=== PATIENT | male | born 1945 | race Caucasian/White ===

== ENCOUNTER 2018-04-28 14:12 | Emergency (ER) | payer OTHER, BC ==
--- OUTSIDE RECORDS SUMMARY | 2018-04-28 14:15 | XMS REPORT | Continuity of Care Document ---
:1945 Author Organization Interface Problems Problem Status Onset Date Classification Date Comments Source Reported Medications Medication Details Route Status Patient Ordering Order Source Instructions Provider Date Allergies, Adverse Reactions, Alerts Substance Category Reaction Severity Reaction Status Date Comments Source type Reported Immunizations Immunization Date Given Site Status Last Updated Comments Source Results Order Results Value Reference Date Interpretation Comments Source Name Range Vital Signs Vital Sign Value Date Comments Source Encounters Location Location Encounter Encounter Reason Attending ADM DC Status Source Details Type Number For Provider Date Date Visit Outpatient [id number] JULIAN 11/08 [facility] [place] Outpatient [id number] JULIAN 11/09 [facility] [place] Outpatient [id number] JULIAN 12/06 [facility] [place] Procedures Procedure Code Date Perfomer Comments Source
--- NOTE | 2018-04-28 16:17 | ER ---
Nurse's Notes [facility] Name: Dalton King Age: 72 yrs Sex: Male : 1945 Arrival Date: 04/28/2018 Time: 14:14 Bed Treatment Private MD: Diagnosis: Bitten by dog-Right hand Presentation: 04/28 14:32 Presenting complaint: Patient states: i had a dog bite ( a [place]), on my R hand; hj happened about an hour ago; denies info about dog;. Transition of care: patient was not received from another setting of care. Onset of symptoms was April 28, 2018. Risk Assessment: Do you want to hurt yourself or someone else? Patient reports no desire to harm self or others. Initial Sepsis Screen: Does the patient meet any 2 criteria? No. Patient's initial sepsis screen is negative. Does the patient have a suspected source of infection? No. Patient's initial sepsis screen is negative. Care prior to arrival: None. 14:32 Method Of Arrival: Ambulatory 14:32 Acuity: ADRI 4 14:41 Note spoke with Demi, [id number]; reported the incident to [facility] Police;. Triage Assessment: 14:34 Bite description: bite sustained to right hand is by a dog, animal information: hj vaccination(s) is unknown. General: Appears in no apparent distress. uncomfortable, Behavior is calm, cooperative, appropriate for age. Pain: Complains of pain in right hand. Historical: - Allergies: 14:34 No Known Allergies; hj - Home Meds: 14:34 None [Active]; - PMHx: 14:34 Hypertension; - PSHx: 14:34 None; hj - Immunization history:: Adult Immunizations not up to date. - Social history:: Smoking status: Patient/guardian denies using tobacco, Patient/guardian denies using alcohol. - Ebola Screening: : Patient negative for fever greater than or equal to 101.5 degrees Fahrenheit, and additional compatible Ebola Virus Disease symptoms Patient denies exposure to infectious person Patient denies travel to an Ebola-affected area in the 21 days before illness onset. Screenin:34 Abuse screen: Denies threats or abuse. Denies injuries from another. Nutritional hj screening: No deficits noted. Tuberculosis screening: No symptoms or risk factors identified. Fall Risk None identified. Assessment: 14:35 Derm: Skin has skin tears on R hand Skin is pink, warm \T\ dry. Vital Signs: 14:35 BP 181 / 97; Pulse 83; Resp 18; Temp 98.5(O); Pulse Ox 99% on R/A; Weight 79.38 kg; hj Height 5 ft. 6 in. (167.64 cm); Pain 0/10; 14:35 Body Mass Index 28.25 (79.38 kg, 167.64 cm) ED Course: 14:14 Patient arrived in ED. rg4 14:33 Triage completed. hj 14:35 Arm band placed on left wrist. 14:35 Patient has correct armband on for positive identification. Bed in low position. Call light in reach. Side rails up X 1. Adult w/ patient. 15:23 David Yanes, RN is Primary Nurse. 15:36 Vance Martinez PA is PHCP. cp 15:36 Wisam Tomlinson MD is Attending Physician. cp Administered Medications: 16:25 Drug: Tetanus-Diphtheria Toxoid Adult 0.5 ml {Paradi Operator: [employer]. Exp: iw 12/13/2019. Lot #: [id number]. } Route: IM; Site: left deltoid; Outcome: 16:16 Discharge ordered by . cp 16:40 Patient left the ED. iw Signatures: Dana Moon RN RN David Yanes, RN HANNY Vance Martinez PA PA cp Garcia, Rubi rg4
--- NOTE | 2018-04-28 16:17 | EDPHYS ---
Physician Documentation [facility] Name: Dalton King Age: 72 yrs Sex: Male : 1945 Arrival Date: 04/28/2018 Time: 14:14 Bed Treatment Private MD: ED Physician Wisam Tomlinson HPI: 04/28 15:39 This 72 yrs old Male presents to ER via Ambulatory with complaints of Dog cp Bite. 15:39 The patient was bitten on the right hand, by a dog, at a neighbor's home. Onset: The cp symptoms/episode began/occurred today. 15:39 Animal information: is unknown, Animal control has been notified. cp 15:39 Secondary to the bite the patient reports a laceration, that is superficial, multiple cp puncture wounds, that are superficial. Associated signs and symptoms: Pertinent negatives: bony tenderness, numbness distal to wound, suspected foreign body. Historical: - Allergies: 14:34 No Known Allergies; hj - Home Meds: 14:34 None [Active]; hj - PMHx: 14:34 Hypertension; hj - PSHx: 14:34 None; hj - Immunization history:: Adult Immunizations not up to date. - Social history:: Smoking status: Patient/guardian denies using tobacco, Patient/guardian denies using alcohol. - Ebola Screening: : Patient negative for fever greater than or equal to 101.5 degrees Fahrenheit, and additional compatible Ebola Virus Disease symptoms Patient denies exposure to infectious person Patient denies travel to an Ebola-affected area in the 21 days before illness onset. ROS: 15:40 Eyes: Negative for injury, pain, redness, and discharge. cp 15:40 Constitutional: Negative for body aches, chills, fever, poor PO intake. 15:40 Cardiovascular: Negative for chest pain, edema, palpitations. 15:40 Respiratory: Negative for cough, shortness of breath, wheezing. 15:40 Abdomen/GI: Negative for abdominal pain, nausea, vomiting, and diarrhea. 15:40 Skin: Positive for of the right hand, dog bite. 15:40 Neuro: Negative for numbness, weakness. 15:40 All other systems are negative. Exam: 15:45 Constitutional: The patient appears in no acute distress, alert, awake, well developed, cp well nourished. 15:45 Head/Face: Normocephalic, atraumatic. cp 15:45 Eyes: Periorbital structures: appear normal, Conjunctiva: normal, no exudate, no injection, Lids and lashes: appear normal, bilaterally. 15:45 ENT: External ear(s): are unremarkable, Nose: is normal, Mouth: Lips: moist, Oral mucosa: moist, Posterior pharynx: Airway: no evidence of obstruction, patent. 15:45 Chest/axilla: Inspection: normal. 15:45 Cardiovascular: Rate: normal. 15:45 Respiratory: the patient does not display signs of respiratory distress, Respirations: normal, no use of accessory muscles, no retractions, no splinting, no tachypnea. 15:45 Abdomen/GI: Exam negative for discomfort, distension, guarding, Inspection: abdomen appears normal. 15:45 Musculoskeletal/extremity: ROM: full active range of motion, in the right hand, Sensation intact. Tendon exam: specific tendon testing normal through active and passive range of motion 15:45 Skin: injury, bite(s), superficial, noted skin tear wound to dorsum proximal right hand with superficial puncture type wounds to hyper thenar eminence navarro side and dorsal side, minimal bleeding noted, mild swelling noted. Vital Signs: 14:35 BP 181 / 97; Pulse 83; Resp 18; Temp 98.5(O); Pulse Ox 99% on R/A; Weight 79.38 kg; hj Height 5 ft. 6 in. (167.64 cm); Pain 0/10; 14:35 Body Mass Index 28.25 (79.38 kg, 167.64 cm) hj MDM: 15:36 Patient medically screened. cp 15:40 Refusal of service: The patient/guardian displays adequate decision making capability cp and despite a detailed discussion of alternatives, benefits, risks, and consequences refuses: all X-rays. 16:00 Differential diagnosis: superficial laceration, tendon injury, vascular injury, rabies, cp cellulitis. 16:15 Data reviewed: vital signs, nurses notes. cp 16:15 Counseling: I had a detailed discussion with the patient and/or guardian regarding: the cp historical points, exam findings, and any diagnostic results supporting the discharge/admit diagnosis, to return to the emergency department if symptoms worsen or persist or if there are any questions or concerns that arise at home. 16:15 Special discussion: I discussed in detail with the patient the higher chance of wound cp infection based on his presenting history. 04/28 15:39 Order name: Wound Care: please clean and irrigate wound; Complete Time: 16:21 cp Administered Medications: 16:25 Drug: Tetanus-Diphtheria Toxoid Adult 0.5 ml {Standards Analyst: [employer]. Exp: iw 12/13/2019. Lot #: [id number]. } Route: IM; Site: left deltoid; Disposition: 04/28/18 16:16 Discharged to Home. Impression: Bitten by dog - Right hand. - Condition is Stable. - Discharge Instructions: Animal Bite. - Prescriptions for Augmentin 875- 125 mg Oral Tablet - take 1 tablet by ORAL route every 12 hours for 10 days; 20 tablet. Ibuprofen 800 mg Oral Tablet - take 1 tablet by ORAL route every 8 hours As needed take with food; 30 tablet. - Medication Reconciliation Form, Thank You Letter, Antibiotic Education, Prescription Opioid Use form. - Follow up: Private Physician; When: 2 - 3 days; Reason: Wound Recheck. - Problem is new. - Symptoms have improved. Addendum: 05/11/2018 07:31 Co-signature as Attending Physician, Wisam Tomlinson MD I agree with the assessment and k dr plan of care. Signatures: Dispatcher [employer] [facility] Wisam Tomlinson MD MD kdr Dana Moon RN RN iw Joaquin, Henry, RN RN hj Page, Corey, PA PA cp Corrections: (The following items were deleted from the chart) 04/28 15:18 15:08 Hand Right 3 View+RAD.RAD.BRZ ordered. [facility] 16:40 16:16 04/28/2018 16:16 Discharged to Home. Impression: Bitten by dog - Right hand. iw Condition is Stable. Forms are Medication Reconciliation Form, Thank You Letter, Antibiotic Education, Prescription Opioid Use. Follow up: Private Physician; When: 2 - 3 days; Reason: Wound Recheck. Problem is new. Symptoms have improved. cp
[2018-04-28] MEDS ORDERED: TETANUS & DIPHTHERIA TOX,ADULT 0.5 ML VIAL ONE (16:34)
== END 2018-04-28 16:40 | disposition home or self-care (01) ==
LOC: ER 14:12
DX: S60.571A Other superficial bite of hand of right hand, initial encounter (principal); I10 Essential (primary) hypertension; W54.0XXA Bitten by dog, initial encounter; Y93.9 Activity, unspecified; Y92.89 Other specified places as the place of occurrence of the external cause; Z23 Encounter for immunization
CPT/HCPCS: 90714; 99282

== ENCOUNTER 2019-09-27 11:43 | Emergency (ER) | payer OTHER, BC ==
[2019-09-27 12:44] LABS: Absolute Lymphocytes (CBC) 0.6 K/uL (0.7-4.9); Basophils % 0.6 % (0-1.3); Hematocrit 39.9 % (39.6-49.0); Lymphocytes % 6.4 % (15.3-44.8); MPV 9.6 fL (7.6-11.3); Protime INR 0.97; RBC Red Blood Cell Count 4.21 M/uL (4.33-5.43)
--- NOTE | 2019-09-27 12:58 | RAD REPORT ---
EXAM DESCRIPTION: RAD - Chest Single View - 09/27/2019 12:49 pm CLINICAL HISTORY: CHEST PAIN COMPARISON: None TECHNIQUE: AP portable chest image was obtained 09/27/2019 12:49 pm . FINDINGS: Lung volumes are low accentuating interstitial pattern. No mass or consolidation. No signi ficant failure or volume overload. Heart and vasculature are normal. No measurable pleural effusion a nd no pneumothorax. No acute bony abnormality seen. No acute aortic findings suspected. IMPRESSION: No acute cardiopulmonary process. Low lung volumes could potentially mask a very minimal interstitial edema or infiltrate process.
[2019-09-27 13:01] LABS: ALT/SGPT 33 U/L (12-78); AST/SGOT 35 U/L (15-37); Albumin 3.3 g/dL (3.4-5.0); Alkaline Phosphatase 51 U/L (45-117); BUN Blood Urea Nitrogen 21 mg/dL (7-18); Bicarbonate 30 mmol/L (21-32); Bilirubin Direct 0.1 mg/dL (0-0.2); Bilirubin Total 0.6 mg/dL (0.2-1.0); Glucose Level 99 mg/dL (74-106); Lipase 131 U/L (73-393); Magnesium 2.5 mg/dL (1.8-2.4); NT PRO-BNP 107 pg/mL (<125); Protein, Total 7.1 g/dL (6.4-8.2); Sodium Level 138 mmol/L (136-145); Troponin (Emerg Dept Use Only) < 0.02 ng/mL (0.0-0.045)
--- NOTE | 2019-09-27 14:00 | RAD REPORT ---
EXAM DESCRIPTION: CT - Chest Abdomen Pelvis W Cont - 09/27/2019 1:23 pm CLINICAL HISTORY: chest pain, abdominal pain COMPARISON: Abdomen Pelvis W Contrast dated 03/08/2019; Chest Single View dated 09/27/2019 TECHNIQUE: Following dynamic enhancement using 100 milliliters nonionic IV contrast, axial imaging o f the chest, abdomen and pelvis was performed. Biphasic technique was utilized through the abdomen. No oral contrast administered. All CT scans are performed using dose optimization technique as appropriate and may include automated exposure control or mA/KV adjustment according to patient size. FINDINGS: No acute lung parenchymal process. Minimal scarring and/ or atelectasis seen in each lung base. Right hemidiaphragm elevation is present. No pleural effusion, pleural thickening or pneumothor ax. No significant aortic or pulmonary arterial tree finding. Mediastinal and hilar regions show no m ass or abnormal lymphadenopathy. No chest wall mass or axillary lymphadenopathy. Thoracic spine degen erative changes are present. No acute bone finding. Liver attenuation is borderline for fatty infiltration. No focal liver lesions identifiable. Spleen a nd pancreas show no suspicious findings. Gallbladder and biliary tree are unremarkable. Gallstones c an be occult on CT imaging. Symmetric renal function is seen with no mass or hydronephrosis. Small re nal cysts are present similar to prior imaging. No active renal parenchymal process seen. No suspicio us adrenal finding. No bladder abnormality seen. No suspicious prostate gland finding. No stomach or small bowel acute finding. No dilated colon or active colon process. Left-sided diverti culosis is prominent in the redundant sigmoid colon. No diverticulitis. No appendicitis. No acute GI findings seen. Bony degenerative change in the abdomen and pelvis. No acute bone process. No acute vascular finding identified. Infrarenal abdominal aortic aneurysm is present. Aneurysm measu res 4.1 x 3.3 cm on the current study. This compares to 3.9 x 3.1 cm February 2019. No acute aortic p rocess evident at the aneurysm site. IMPRESSION: No active CT chest finding. No acute or worrisome CT abdomen or pelvis finding. Patient does have an infrarenal abdominal aortic aneurysm measuring fractionally larger than February 2019. Aneurysm is 4.1 x 3.3 cm on the current study compared to 3.9 x 3.1 cm [facility] the February [facility]. This can be followed as clinical findings warrant.
[2019-09-27] MEDS ORDERED: NA CHLORIDE 0.9% 500 ML ONE (14:59)
--- NOTE | 2019-09-27 15:40 | ER ---
Nurse's Notes [facility] Name: Dalton King Age: 74 yrs Sex: Male : 1945 Arrival Date: 09/27/2019 Time: 11:47 Bed 15 Private MD: Diagnosis: Person with feared health complaint in whom no diagnosis is made;Conjunctivitis Presentation: 09/26 11:56 Chief complaint: EMS states: Chest pain, abdominal pain more on the RLQ x 2 days. ca1 Lethargic x 2 days. Denies any pain at this time. A\T\Ox2 which the facility said is the pt's normal. O2 sats at 90-91%, administered 2LPM O2, sats went up to 94%/ VS WNL. BGL 108. BP 122/66, HR 55-60. Coronavirus screen: Proceed with normal triage. Patient denies a cough. Patient denies shortness of breath or difficulty breathing. Patient denies measured and/or subjective temperature greater than 100.4F prior to today's visit. Patient denies travel on a cruise ship or to a country the [facility] currently lists as an affected area. Patient denies contact with known and/or suspected case of COVID-19. Ebola Screen: Patient negative for fever greater than or equal to 101.5 degrees Fahrenheit, and additional compatible Ebola Virus Disease symptoms Patient denies exposure to infectious person. Patient denies travel to an Ebola-affected area in the 21 days before illness onset. No symptoms or risks identified at this time. Initial Sepsis Screen: Does the patient meet any 2 criteria? No. Patient's initial sepsis screen is negative. Does the patient have a suspected source of infection? No. Patient's initial sepsis screen is negative. Risk Assessment: Do you want to hurt yourself or someone else? Patient reports no desire to harm self or others. Onset of symptoms was September 27, 2019. 11:56 Method Of Arrival: EMS: [facility] ca1 11:56 Acuity: ADRI 3 ca1 11:56 Care prior to arrival: Glucose check: 108. Transition of care: patient was received ca1 from another setting of care (home health care), [facility]. Historical: - Allergies: 12:06 No Known Allergies; jl7 - Home Meds: 12:06 abiraterone oral oral [Active]; aripiprazole 2 mg oral tab [Active]; Calcium Carbonate jl7 Oral [Active]; carvedilol 6.25 mg oral tab [Active]; divalproex 250 mg oral Tb24 [Active]; donepezil 10 mg oral tab 1 tab once daily [Active]; escitalopram oxalate 20 mg oral tab 1 tab once daily [Active]; memantine oral oral [Active]; Myrbetriq 25 mg oral Tb24 1 tab once daily [Active]; valsartan 320 mg oral tab [Active]; - PMHx: 12:06 Hypertension; Dementia; Depression; jl7 - Immunization history:: Adult Immunizations up to date. - Social history:: Smoking status: Patient denies any tobacco usage or history of. Screenin:00 Abuse screen: Denies threats or abuse. Denies injuries from another. Nutritional jl7 screening: No deficits noted. Tuberculosis screening: No symptoms or risk factors identified. Fall Risk Secondary diagnosis (15 points) Alzheimer's, IV access (20 points). Ambulatory Aid- None/Bed Rest/Nurse Assist (0 pts). Gait- Weak (10 pts.). Mental Status- Overestimates/Forgets Limitations (15 pts.). Total [place] Fall Scale indicates High Risk Score (45 or more points). Fall prevention measures have been instituted. Side Rails Up X 2 Placed Close to Nursing Station Frequent Obs/Assessments Occuring Family Present and informed to notify staff if the need to leave the bedside As available patient and family educated on Fall Prevention Program and Strategies. Assessment: 11:55 Reassessment: cleaned bilateral eyes of matted drainage, reddened cornea and tearing jl7 noted. 12:00 General: Appears in no apparent distress. uncomfortable, Behavior is calm, cooperative. jl7 Pain: Denies pain. Neuro: Level of Consciousness is awake, alert, obeys commands, Oriented to person, place. Cardiovascular: Patient's skin is warm and dry. Respiratory: Airway is patent Respiratory effort is even, unlabored, Respiratory pattern is regular, symmetrical. Derm: Skin is pink, warm \T\ dry. 13:22 General: Son, ED Lai, at bedside. jl7 14:00 Reassessment: Patient appears in no apparent distress at this time. No changes from jl7 previously documented assessment. Patient and/or family updated on plan of care and expected duration. Pain level reassessed. 14:57 Reassessment: Cleaned pt of incontinence, provided clean brief, assisted back to bed. jl7 15:43 Reassessment: Ming, [phone], reports he had to go back to work and will not be jl7 available to come get pt until after 1700, charge nurse notified. Krystyna, at [facility] reports they do not have transportation available. 17:20 Reassessment: Dr. Tomlinson notified of drainage and tearing. jl7 17:32 Reassessment: Spoke to SANDRA Moore, at [facility], provided discharge instructions. [facility] Teresa requests for paperwork to be faxed to her at [phone]. Vital Signs: 11:56 BP 141 / 76; Pulse 52; Resp 16 S; Temp 97.3(TE); Pulse Ox 95% on 2 lpm NC; ca1 12:30 BP 140 / 77; Pulse 51; Resp 16; Pulse Ox 97% ; Pain 0/10; jl7 13:49 BP 146 / 68; Pulse 52; Resp 16; Pulse Ox 97% ; jl7 14:58 BP 168 / 80; Pulse 56; Resp 17; Pulse Ox 98% ; jl7 ED Course: 11:47 Patient arrived in ED. em1 11:56 Arm band placed on right wrist. ca1 12:00 Triage completed. ca1 12:00 Héctor Lipscomb, RN is Primary Nurse. jl7 12:02 Angel Quinonez PA is PHCP. [facility] 12:02 Wisam Tomlinson MD is Attending Physician. [facility] 12:30 Initial lab(s) drawn, by wi, sent to lab. Inserted saline lock: 20 gauge in right jl7 wrist, using aseptic technique. Blood collected. 12:49 XRAY Chest (1 view) In Process Unspecified. EDMS 13:11 EKG done, by ED staff, reviewed by Wisam Tomlinson MD. mh5 13:13 Patient has correct armband on for positive identification. Placed in gown. Bed in low mh5 position. Call light in reach. Side rails up X2. Warm blanket given. functional mental disability teacher on. Pulse ox on. NIBP on. 13:24 CT Chest, Abdomen, Pelvis - W/Contrast In Process Unspecified. EDMS 17:28 No provider procedures requiring assistance completed. IV discontinued, intact, jl7 bleeding controlled, No redness/swelling at site. Pressure dressing applied. Administered Medications: 14:57 Drug: NS 0.9% 500 ml Route: IV; Rate: bolus; Site: right wrist; jl7 15:30 Follow up: IV Status: Completed infusion; IV Intake: 500ml jl7 Intake: 15:30 IV: 500ml; Total: 500ml. jl7 Outcome: 15:40 Discharge ordered by . farhat 17:28 Discharged to home via wheelchair, with family. jl7 17:28 Condition: stable 17:28 Discharge instructions given to patient, Instructed on discharge instructions, follow up and referral plans. medication usage, Demonstrated understanding of instructions, follow-up care, medications, Prescriptions given X 1. 17:33 Patient left the ED. iw Signatures: Dispatcher [employer] EDMS Angel Quinonez PA PA jmm Williams, Irene, HANNY RN iw Mark Corley [facility] Ivana Corley [facility] Héctor Lipscomb RN RN jl7 Izzy Houston RN RN ca1 Corrections: (The following items were deleted from the chart) 12:56 11:56 Chief complaint: EMS states: Chest pain, abdominal pain more on the LLQ x 2 days. ca1 Lethargic x 2 days. Denies any pain at this time. A\T\Ox2 which the facility said is the pt's normal. O2 sats at 90-91%, administered 2LPM O2, sats went up to 94%/ VS WNL. BGL 108. BP 122/66, HR 55-60. ca1
--- NOTE | 2019-09-27 15:40 | EDPHYS ---
Physician Documentation [facility] Name: Dalton King Age: 74 yrs Sex: Male : 1945 Arrival Date: 09/27/2019 Time: 11:47 Bed 15 Private MD: ED Physician Wisam Tomlinson HPI: 09/26 13:10 This 74 yrs old Male presents to ER via EMS with complaints of chest pain, [facility] abdominal pain. 13:10 Onset: 2 day(s) ago. Unable to obtain HPI due to baseline dementia. According to the [facility] family patient complained of chest pain and abdominal pain beginning 2 days ago. Patient currently denies chest pain, abdominal pain, weakness. . Historical: - Allergies: 12:06 No Known Allergies; jl7 - Home Meds: 12:06 abiraterone oral oral [Active]; aripiprazole 2 mg oral tab [Active]; Calcium Carbonate jl7 Oral [Active]; carvedilol 6.25 mg oral tab [Active]; divalproex 250 mg oral Tb24 [Active]; donepezil 10 mg oral tab 1 tab once daily [Active]; escitalopram oxalate 20 mg oral tab 1 tab once daily [Active]; memantine oral oral [Active]; Myrbetriq 25 mg oral Tb24 1 tab once daily [Active]; valsartan 320 mg oral tab [Active]; - PMHx: 12:06 Hypertension; Dementia; Depression; jl7 - Immunization history:: Adult Immunizations up to date. - Social history:: Smoking status: Patient denies any tobacco usage or history of. ROS: 13:10 Unable to obtain ROS due to baseline dementia. [facility] Exam: 13:10 Head/Face: atraumatic. Eyes: EOMI, no conjunctival erythema appreciated ENT: Moist [facility] Mucus Membranes Neck: Trachea midline, Supple Chest/axilla: Normal chest wall appearance and motion. Cardiovascular: Regular rate and rhythm. No edema appreciated Respiratory: Normal respirations, no respiratory distress appreciated 13:10 Constitutional: The patient appears in no acute distress, alert, awake. 13:10 Abdomen/GI: Inspection: abdomen appears normal, Bowel sounds: normal, Palpation: abdomen is soft and non-tender, in all quadrants. 13:10 Musculoskeletal/extremity: ROM: intact in all extremities. 13:10 Skin: Appearance: Color: normal in color. 13:10 Neuro: Orientation: Mentation: is normal, Motor: is normal. 13:10 Psych: Behavior/mood is pleasant, cooperative. Vital Signs: 11:56 BP 141 / 76; Pulse 52; Resp 16 S; Temp 97.3(TE); Pulse Ox 95% on 2 lpm NC; ca1 12:30 BP 140 / 77; Pulse 51; Resp 16; Pulse Ox 97% ; Pain 0/10; jl7 13:49 BP 146 / 68; Pulse 52; Resp 16; Pulse Ox 97% ; jl7 14:58 BP 168 / 80; Pulse 56; Resp 17; Pulse Ox 98% ; jl7 MDM: 12:18 Patient medically screened. leonel 15:37 Data reviewed: vital signs, nurses notes. Counseling: I had a detailed discussion with farhat the patient and/or guardian regarding: the historical points, exam findings, and any diagnostic results supporting the discharge/admit diagnosis, lab results, radiology results, the need for outpatient follow up, to return to the emergency department if symptoms worsen or persist or if there are any questions or concerns that arise at home. 09/26 12:03 Order name: Basic Metabolic Panel; Complete Time: 13:12 [facility] 09/26 12:03 Order name: CBC with Diff; Complete Time: 06:52 [facility] 09/26 12:03 Order name: LFT's; Complete Time: 13:12 [facility] 09/26 12:03 Order name: Magnesium; Complete Time: 13:12 [facility] 09/26 12:03 Order name: NT PRO-BNP; Complete Time: 13:12 [facility] 09/26 12:03 Order name: PT-INR; Complete Time: 13:12 [facility] 09/26 12:03 Order name: Troponin (emerg Dept Use Only); Complete Time: 13:12 [facility] 09/26 12:03 Order name: XRAY Chest (1 view); Complete Time: 13:12 [facility] 09/26 12:03 Order name: EKG; Complete Time: 12:04 [facility] 09/26 12:03 Order name: Cardiac monitoring; Complete Time: 12:30 [facility] 09/26 12:03 Order name: Lipase; Complete Time: 13:12 [facility] 09/26 12:57 Order name: CT Chest, Abdomen, Pelvis - W/Contrast; Complete Time: 14:16 [facility] 09/26 16:15 Order name: Urine Dipstick--Ancillary (enter results); Complete Time: 06:52 em1 09/26 12:03 Order name: EKG - Nurse/Tech; Complete Time: 13:11 [facility] 09/26 12:03 Order name: IV Saline Lock; Complete Time: 12:30 [facility] 09/26 12:03 Order name: Labs collected and sent; Complete Time: 12:30 [facility] 09/26 12:03 Order name: O2 Per Protocol; Complete Time: 12:30 [facility] 09/26 12:03 Order name: O2 Sat Monitoring; Complete Time: 12:29 [facility] 09/26 12:03 Order name: Urine Dipstick-Ancillary (obtain specimen); Complete Time: 15:39 jm Administered Medications: 14:57 Drug: NS 0.9% 500 ml Route: IV; Rate: bolus; Site: right wrist; jl7 15:30 Follow up: IV Status: Completed infusion; IV Intake: 500ml jl7 Disposition: 17:41 Co-signature as Attending Physician, Wisam Tomlinson MD I agree with the assessment and kdr plan of care. Disposition: 09/27/19 15:40 Discharged to Home. Impression: Person with feared health complaint in whom no diagnosis is made, Conjunctivitis. - Condition is Stable. - Discharge Instructions: Bacterial Conjunctivitis, [id number], Dementia. - Prescriptions for Gentamicin 0.3 % (3 mg/gram) Ophthalmic Ointment - apply 0.5 inch by OPHTHALMIC route 2-3 times daily for 7 days Apply to both eyes; 3.5 gram. - Medication Reconciliation Form, Thank You Letter, Antibiotic Education form. - Follow up: Private Physician; When: 2 - 3 days; Reason: Recheck today's complaints, Continuance of care, Re-evaluation by your physician. Signatures: Dispatcher [employer] EDMS Wisam Tomlinson MD MD kdr Mickail, Joel, PA PA jmm Williams, Irene, Héctor Rosa RN, RN RN jl7 Corrections: (The following items were deleted from the chart) 17:25 15:40 09/27/2019 15:40 Discharged to Home. Impression: Person with feared health kdr complaint in whom no diagnosis is made. Condition is Stable. Forms are Medication Reconciliation Form, Thank You Letter, Antibiotic Education, Prescription Opioid Use. Follow up: Private Physician; When: 2 - 3 days; Reason: Recheck today's complaints, Continuance of care, Re-evaluation by your physician. farhat 17:33 17:25 09/27/2019 15:40 Discharged to Home. Impression: Person with feared health iw complaint in whom no diagnosis is made; Conjunctivitis. Condition is Stable. Discharge Instructions: Dementia. Forms are Medication Reconciliation Form, Thank You Letter, Antibiotic Education, Prescription Opioid Use. Follow up: Private Physician; When: 2 - 3 days; Reason: Recheck today's complaints, Continuance of care, Re-evaluation by your physician. kdr
[2019-09-27 17:17] LABS: Urine Blood NEGATIVE (NEG); Urine Glucose NEGATIVE (NEG); Urine Protein NEGATIVE (NEG)
[2019-09-27 17:43] VITALS: TEMP 97.3
[2019-09-27 17:46] VITALS: BP 168/80; O2SAT 98
--- NOTE | 2019-09-28 11:54 | EKG ---
Test Date: 2019-09-27 Test Time: 13:08:55 Tube Sizer Operator: MARCY MEASUREMENT RESULTS: Intervals: Rate: 53 LA: 142 QRSD: 88 QT: 474 QTc: 444 Dodge: P: 42 LA: 142 QRS: 45 T: 64 INTERPRETIVE STATEMENTS: Sinus bradycardia Nonspecific ST and T wave abnormality Abnormal ECG Compared to ECG 06/27/2019 10:42:30 Sinus rhythm no longer present ST (T wave) deviation still present Electronically Signed On 09-28-19 11:50:28 CDT by Son Fitzgerald
== END 2019-09-27 17:33 | disposition home or self-care (01) ==
LOC: ER 11:43
DX: Z71.1 Person with feared health complaint in whom no diagnosis is made (principal); H10.9 Unspecified conjunctivitis; I10 Essential (primary) hypertension; F32.9 Major depressive disorder, single episode, unspecified
CPT/HCPCS: 93005; 85025 ×2; 80048; 36415; 83735; 85610; 80076; 80164; 84443; 81003; 84484; 83690; 83880; 71260; 74177; 71045; 96360; 99285; Q9967; J7040

== ENCOUNTER 2019-11-04 22:31 | Emergency (ER) | payer OTHER, BC ==
--- NOTE | 2019-11-05 01:01 | EDPHYS ---
Physician Documentation [facility] Name: Dalton King Age: 74 yrs Sex: Male : 1945 Arrival Date: 11/04/2019 Time: 22:32 Bed 2 Private MD: ED Physician Joe Murphy HPI: 11/04 01:51 This 74 yrs old Male presents to ER via EMS with complaints of Fall. tw4 01:51 Details of fall: The patient fell from an upright position. Details of fall: The tw4 patient fell from seated position, off the edge of a bed. Onset: The symptoms/episode began/occurred today. Associated injuries: The patient sustained no obvious injury. Severity of symptoms: At their worst the symptoms were very mild, in the emergency department the symptoms have improved. Historical: - Allergies: 11/03 22:47 No Known Allergies; mg2 - PMHx: 22:47 alzheimer's; cancer; prostate; mg2 - Social history:: Smoking status: Patient denies any tobacco usage or history of. Patient/guardian denies using alcohol, street drugs, IV drugs. ROS: 11/04 02:03 Constitutional: Negative for fever, chills, and weight loss, Eyes: Negative for injury, tw4 pain, redness, and discharge, Cardiovascular: Negative for chest pain, palpitations, and edema, Respiratory: Negative for shortness of breath, cough, wheezing, and pleuritic chest pain, Abdomen/GI: Negative for abdominal pain, nausea, vomiting, diarrhea, and constipation, Back: Negative for injury and pain, MS/Extremity: Negative for injury and deformity, Skin: Negative for injury, rash, and discoloration, Neuro: Negative for headache, weakness, numbness, tingling, and seizure. Exam: 02:03 Constitutional: This is a well developed, well nourished patient who is awake, alert, tw4 and in no acute distress. 02:03 Chest/axilla: Normal chest wall appearance and motion. Nontender with no deformity. No lesions are appreciated. Cardiovascular: Regular rate and rhythm with a normal S1 and S2. No gallops, murmurs, or rubs. Normal PMI, no JVD. No pulse deficits. Respiratory: Lungs have equal breath sounds bilaterally, clear to auscultation and percussion. No rales, rhonchi or wheezes noted. No increased work of breathing, no retractions or nasal flaring. Abdomen/GI: Soft, non-tender, with normal bowel sounds. No distension or tympany. No guarding or rebound. No evidence of tenderness throughout. Back: No spinal tenderness. No costovertebral tenderness. Full range of motion. MS/ Extremity: Pulses equal, no cyanosis. Neurovascular intact. Full, normal range of motion. Neuro: Awake and alert, GCS 15, oriented to person, place, time, and situation. Cranial nerves II-XII grossly intact. Motor strength 5/5 in all extremities. Sensory grossly intact. Cerebellar exam normal. Normal gait. 02:03 Head/face: Noted is contusion, that is superficial, of the left occipital area. Vital Signs: 11/03 22:40 BP 158 / 80; Pulse 64; Resp 18; Temp 98.3; Pulse Ox 95% on R/A; Weight 81.65 kg; mg2 11/04 00:57 Pulse 62; Resp 18; Pulse Ox 95% on R/A; mg2 MDM: 01:00 Patient medically screened. tw4 02:03 Differential diagnosis: abrasion, closed head injury, contusion. Data reviewed: vital tw4 signs, nurses notes. Data interpreted: Pulse oximetry: Interpretation: normal. Counseling: I had a detailed discussion with the patient and/or guardian regarding: the historical points, exam findings, and any diagnostic results supporting the discharge/admit diagnosis. Special discussion: I discussed with the patient/guardian in detail that at this point there is no indication for admission to the hospital. It is understood, however, that if the symptoms persist or worsen the patient needs to return immediately for re-evaluation. 02:09 Data reviewed: radiologic studies, CT scan. Special discussion: Based on the patient's tw4 history, exam and DX evaluation, there is no indication for emergent intervention or inpatient TX. It is understood by the patient/guardian that if the SXs persist or worsen they need to return immediately for re-evaluation. 11/03 22:43 Order name: CT Head C Spine tw4 Administered Medications: 02:16 Drug: LoMOTIL 2 tabs Route: PO; mg2 02:16 Follow up: Response: No adverse reaction; Medication administered at discharge. mg2 Disposition: 11/05/19 01:00 Discharged to Home. Impression: Fall from bed, Contusion of unspecified part of head. - Condition is Stable. - Discharge Instructions: Contusion, Head Injury, Adult, [id number], Fall Prevention in Hospitals, Adult. - Medication Reconciliation Form, Thank You Letter, Antibiotic Education, Prescription Opioid Use form. - Follow up: Private Physician; When: Upon discharge from the Emergency Department; Reason: Recheck today's complaints, Continuance of care, Re-evaluation by your physician. - Problem is new. - Symptoms have improved. Signatures: Dispatcher [employer] EDIL Joe Murphy MD MD tw4 Berny Westfall, RN RN mg2 Corrections: (The following items were deleted from the chart) 02:17 01:00 11/05/2019 01:00 Discharged to Home. Impression: Fall from bed; Contusion of mg2 unspecified part of head. Condition is Stable. Forms are Medication Reconciliation Form, Thank You Letter, Antibiotic Education, Prescription Opioid Use. Follow up: Private Physician; When: Upon discharge from the Emergency Department; Reason: Recheck today's complaints, Continuance of care, Re-evaluation by your physician. Problem is new. Symptoms have improved. tw4
--- NOTE | 2019-11-05 01:01 | ER ---
Nurse's Notes [facility] Name: Dalton King Age: 74 yrs Sex: Male : 1945 Arrival Date: 11/04/2019 Time: 22:32 Bed 2 Private MD: Diagnosis: Fall from bed;Contusion of unspecified part of head Presentation: 11/03 22:40 Chief complaint: EMS states: he is in [place] and he was found lying on the floor. mg2 his bed is literally like a box without frame. so it's not high. he denies any pain and loc. he had a bowel movement on his way here. AOx2 and that his baseline. Coronavirus screen: Proceed with normal triage. Patient denies a cough. Patient denies shortness of breath or difficulty breathing. Patient denies measured and/or subjective temperature greater than 100.4F prior to today's visit. Patient denies travel on a cruise ship or to a country the [facility] currently lists as an affected area. Patient denies contact with known and/or suspected case of COVID-19. Ebola Screen: No symptoms or risks identified at this time. Initial Sepsis Screen: Does the patient meet any 2 criteria? No. Patient's initial sepsis screen is negative. Does the patient have a suspected source of infection? No. Patient's initial sepsis screen is negative. Risk Assessment: Do you want to hurt yourself or someone else? Patient reports no desire to harm self or others. Onset of symptoms was November 04, 2019. 22:40 Method Of Arrival: EMS: [facility] mg2 22:40 Acuity: ADRI 3 mg2 Triage Assessment: 22:47 General: Appears in no apparent distress. comfortable, Behavior is calm, cooperative. mg2 Pain: Denies pain. EENT: No signs and/or symptoms were reported regarding the EENT system. Neuro: Level of Consciousness is awake, alert, Oriented to person, place. Cardiovascular: Capillary refill < 3 seconds Patient's skin is warm and dry. Respiratory: Airway is patent Respiratory effort is even, unlabored, Respiratory pattern is regular, symmetrical. GI: No signs and/or symptoms were reported involving the gastrointestinal system. : No signs and/or symptoms were reported regarding the genitourinary system. Derm: Skin is intact, is healthy with good turgor, Skin is pink, warm \T\ dry. normal. Musculoskeletal: Circulation, motion, and sensation intact. Capillary refill < 3 seconds. Historical: - Allergies: 22:47 No Known Allergies; mg2 - PMHx: 22:47 alzheimer's; cancer; prostate; mg2 - Social history:: Smoking status: Patient denies any tobacco usage or history of. Patient/guardian denies using alcohol, street drugs, IV drugs. Screenin:48 Abuse screen: Denies threats or abuse. Denies injuries from another. Nutritional mg2 screening: No deficits noted. Tuberculosis screening: No symptoms or risk factors identified. Fall Risk Fall in past 12 months (25 points). Secondary diagnosis (15 points) Alzheimer's. Assessment: 22:48 General: see triage assessment. mg2 11/04 00:57 Reassessment: Patient appears in no apparent distress at this time. Patient and/or mg2 family updated on plan of care and expected duration. Pain level reassessed. 01:33 Reassessment: Melissa King ( daughter in law) contacted and his will come and mg2 pick the patient up. Vital Signs: 11/03 22:40 BP 158 / 80; Pulse 64; Resp 18; Temp 98.3; Pulse Ox 95% on R/A; Weight 81.65 kg; mg2 11/04 00:57 Pulse 62; Resp 18; Pulse Ox 95% on R/A; mg2 ED Course: 11/03 22:32 Patient arrived in ED. ds1 22:40 Berny Westfall, HANNY is Primary Nurse. mg2 22:42 Joe Murphy MD is Attending Physician. tw4 22:43 Triage completed. mg2 22:47 Arm band placed on. mg2 22:48 Patient has correct armband on for positive identification. Pulse ox on. NIBP on. Door mg2 closed. Warm blanket given. 22:48 No provider procedures requiring assistance completed. mg2 23:51 CT Head C Spine In Process Unspecified. EDMS 11/04 02:00 Cleaned of incontinence. Linen changed. he passed loose stool twice , provider informed.mg2 02:16 Patient did not have IV access during this emergency room visit. mg2 Administered Medications: 02:16 Drug: LoMOTIL 2 tabs Route: PO; mg2 02:16 Follow up: Response: No adverse reaction; Medication administered at discharge. mg2 Outcome: 01:00 Discharge ordered by . tw4 02:17 Discharged to [facility]. Report called to [facility] mg2 02:17 Condition: stable 02:17 Discharge instructions given to [facility], Instructed on discharge instructions, follow up and referral plans. Demonstrated understanding of instructions, follow-up care. 02:17 Patient left the ED. mg2 Signatures: Dispatcher [employer] EDCT Dl Kell ds1 Joe Murphy MD MD tw4 Berny Westfall, RN RN mg2
[2019-11-05] MEDS ORDERED: DIPHENOX/ATROP SULF 1 TAB PO ONE (02:14)
[2019-11-05 02:22] VITALS: BP 158/80; TEMP 98.3; O2SAT 95
--- NOTE | 2019-11-05 12:14 | RAD REPORT ---
EXAM DESCRIPTION: CT - Head C Spine Mpr Wo Con - 11/05/2019 4:43 am CLINICAL HISTORY: 74 years Male fall TECHNIQUE: Contiguous axial CT images obtained through the brain and cervical spine without IV contr ast. Coronal and sagittal reformatted images also provided. This CT exam was performed according to our departmental dose-optimization program, which includes on e or more of the following dose reduction techniques: automated exposure control, adjustment of the m A and/or kV according to patient size, and/or use of iterative reconstruction technique. COMPARISON: No prior exams provided for comparison. FINDINGS: There is no acute skull fracture, intracranial hemorrhage, extraaxial collection, or acute transcortical infarction. Mild diffuse volume loss without mass effect or midline shift. Scattered c hronic microvascular changes. The visualized paranasal sinuses and mastoid air cells are clear. There is no acute cervical fracture or spondylolisthesis. There is mild multilevel degenerative disc disease and uncovertebral arthrosis without aggressive oss eous lesion. No prevertebral or paraspinal soft tissue swelling. The lung apices are clear. At C3-C4, there is flattening of the ventral aspect of the thecal sac with mild left neural foraminal narrowing. At C4-C5, there is flattening of the ventral aspect of the thecal sac with slight bilateral neural fo raminal narrowing. At C5-C6, there is mild right neural foraminal narrowing. At C6-C7, there is mild central canal stenosis with mild left neural foraminal narrowing. IMPRESSION: No acute intracranial or cervical spine injury. Mild multilevel degenerative changes. Electronically signed by: Angelika Callejas MD 11/05/2019 12:15 AM CDT Due to temporary technical issues with the PACS/Fluency reporting system, reports are being signed by the in house radiologist without review as a courtesy to ensure prompt reporting. The interpreting r adiologist is fully responsible for the content of the report.
== END 2019-11-05 02:17 | disposition home or self-care (01) ==
LOC: ER 22:31
DX: S00.93XA Contusion of unspecified part of head, initial encounter (principal); W06.XXXA Fall from bed, initial encounter; Y93.9 Activity, unspecified; Y92.122 Bedroom in nursing home as the place of occurrence of the external cause; Z85.46 Personal history of malignant neoplasm of prostate; G30.9 Alzheimer's disease, unspecified; F02.80 Dementia in other diseases classified elsewhere, unspecified severity, without behavioral disturbance, psychotic disturbance, mood disturbance, and anxiety
CPT/HCPCS: 70450; 72125; 99284

== ENCOUNTER 2019-11-18 21:47 | Emergency (ER) | payer OTHER, BC ==
--- NOTE | 2019-11-18 23:54 | ER ---
Nurse's Notes [facility] Name: Dalton King Age: 74 yrs Sex: Male : 1945 Arrival Date: 11/18/2019 Time: 21:53 Bed 15 Private MD: Diagnosis: mechanical fall Presentation: 11/17 21:53 Chief complaint: EMS states: Called for patient who had unwitnessed fall, found by lp1 staff with neck extended over window sill; No LOC per nursing staff; Patient complaint of pain to neck. Care prior to arrival: Cervical collar in place. Mechanism of Injury: Fall Unknown; unwitnessed fall. Trauma event details: Injury occurred in the [facility], Injury occurred: at home. Injury occurred: November 18, 2019 Injury occurred at: 21:00. 21:53 Acuity: ADRI 2 lp1 21:53 Method Of Arrival: EMS: [facility] lp1 21:58 Coronavirus screen: Patient denies a cough. Patient denies shortness of breath or lp1 difficulty breathing. Patient denies measured and/or subjective temperature greater than 100.4F prior to today's visit. Patient denies travel on a cruise ship or to a country the [facility] currently lists as an affected area. Patient denies contact with known and/or suspected case of COVID-19. Ebola Screen: No symptoms or risks identified at this time. Initial Sepsis Screen: Does the patient meet any 2 criteria? No. Patient's initial sepsis screen is negative. Does the patient have a suspected source of infection? No. Patient's initial sepsis screen is negative. Risk Assessment: Do you want to hurt yourself or someone else? Patient reports no desire to harm self or others. Onset of symptoms was November 18, 2019 at 21:00. Transition of care: [facility]. Trauma Activation: Alert Physician: ED Physician; Name: Dr. Murphy; Notified At: 21:43; Arrived At: 21:43 Physician: General Surgeon; Name: N/A; Notified At: 21:43; Arrived At: Physician: Radiology; Name: Becca; Notified At: 21:43; Arrived At: 21:45 Physician: Respiratory; Name: N/A; Notified At: 21:43; Arrived At: Physician: Lab; Name: N/A; Notified At: 21:43; Arrived At: Historical: - Allergies: 22:06 No Known Allergies; lp1 - Home Meds: 22:06 calcium carbonate 600 mg (1,500 mg) oral tab twice a day [Active]; prednisone 5 mg Oral lp1 tab 1 tab 2 times per day [Active]; abiraterone 250mg Oral 4 tabs once daily [Active]; Myrbetriq 25 mg Oral Tb24 1 tab once daily [Active]; valsartan 320 mg Oral tab once daily [Active]; acetaminophen-codeine 300-60 mg Oral tab [Active]; donepezil 10 mg Oral tab 2 tab once daily [Active]; folic acid 1 mg Oral tab 1 tab once daily [Active]; amlodipine 10 mg tab 1 tab once daily [Active]; carvedilol 6.25 mg Oral tab 2 times per day [Active]; escitalopram oxalate 10 mg oral tab once daily [Active]; memantine 7mg Oral once daily [Active]; - PMHx: 22:06 Alzheimer's; Cancer; Dementia; Depression; Hypertension; Prostate; lp1 - PSHx: 22:06 Unable to obtain; lp1 - Immunization history:: Adult Immunizations up to date. - Immunization history: Last tetanus immunization: unknown. - Social history:: Smoking status: unknown. Screenin:05 Abuse screen: Denies threats or abuse. Nutritional screening: No deficits noted. mt2 Tuberculosis screening: No symptoms or risk factors identified. Fall Risk Secondary diagnosis (15 points) Alzheimer's, Ambulatory Aid- Mental Status- Overestimates/Forgets Limitations (15 pts.). Primary Survey: 22:00 Exposure/Environment: All clothing and personal items were removed. N/A. Reassessment mt2 Breathing/Chest Respiratory pattern Regular Respiratory effort Spontaneous Breath sounds Clear Chest inspection Symmetrical. 22:01 NO uncontrolled hemorrhage observed. A: The patient is alert. Airway: patent. mt2 Breathing/Chest: Respiratory pattern: regular, Respiratory effort: unlabored. Circulation: Cardiac rhythm: sinus rhythm. Disability Alert. Reassessment Airway Airway Patent. Secondary Survey: 22:00 HEENT: No deficits noted. Gastrointestinal: No deficits noted. : INCONTINENT WEARS mt2 BRIEFS. Musculoskeletal: Reports pain in scalp. Assessment: 22:04 Reassessment: PATIENT WITH HX OF ALZHEMERS ABLE TO ANSWER SIMPLE QUESTIONS. General: mt2 Appears in no apparent distress. Behavior is cooperative. General: Appears. Neuro: Reports NECK INJURY. 22:10 General: Appears in no apparent distress. Behavior is calm. Pain: Denies pain. Neuro: lp1 Level of Consciousness is awake, obeys commands, Oriented to person, place. EENT: No deficits noted. Cardiovascular: Patient's skin is warm and dry. Pulses are all present. Respiratory: Airway is patent Trachea midline Respiratory pattern is regular. GI: Abdomen is non-distended. : No deficits noted. Derm: Skin is thin, Skin is dry, Skin is normal. Musculoskeletal: No deficits noted. 23:00 Reassessment: Patient and/or family updated on plan of care and expected duration. Pain mt2 level reassessed. Patient denies pain at this time. General: Appears comfortable, Behavior is cooperative, quiet. 11/18 00:02 Reassessment: Patient and/or family updated on plan of care and expected duration. Pain mt2 level reassessed. Patient denies pain at this time. General: Appears comfortable, Behavior is cooperative. Vital Signs: 11/17 21:58 BP 158 / 80; Pulse 60; Resp 18; Temp 98.6(O); Pulse Ox 93% on R/A; Weight 90.72 kg; lp1 23:00 BP 156 / 81; Pulse 89; Resp 16; Pulse Ox 95% on R/A; Pain 0/10; mt2 11/18 00:04 BP 156 / 83; Pulse 69; Resp 16; Temp 97.9; Pulse Ox 97% on R/A; Pain 0/10; mt2 Ivanna Coma Score: 11/17 22:06 Eye Response: spontaneous(4). Verbal Response: oriented(5). Motor Response: obeys lp1 commands(6). Total: 15. 22:06 Eye Response: spontaneous(4). Verbal Response: confused(4). Motor Response: obeys mt2 commands(6). Total: 14. Trauma Score (Adult): 22:06 Eye Response: spontaneous(1); Verbal Response: oriented(1); Motor Response: obeys lp1 commands(2); Systolic BP: > 89 mm Hg(4); Respiratory Rate: 10 to 29 per min(4); [place] Score: 15; Trauma Score: 12 22:06 Eye Response: spontaneous(1); Verbal Response: confused(1); Motor Response: obeys mt2 commands(2); Systolic BP: > 89 mm Hg(4); Respiratory Rate: 10 to 29 per min(4); Ivanna Score: 14; Trauma Score: 12 ED Course: 21:53 Patient arrived in ED. lp1 21:55 Joe Murphy MD is Attending Physician. tw4 21:58 Triage completed. lp1 21:58 Emy Jimenez RN is Primary Nurse. mt2 21:59 Arm band placed on right wrist. lp1 21:59 Allergy band placed. Side rails up X2. C-SPINE PRECAUTION. mt2 22:00 Patient maintains SpO2 saturation greater than 95% on room air. Thermoregulation: warm mt2 blanket given to patient. 22:05 Inserted saline lock: 20 gauge in right antecubital area, using aseptic technique. ds4 Blood collected. Missed attempt(s): 20 gauge in right forearm. Bleeding controlled, band aid applied, catheter tip intact. 22:20 CT Head C Spine In Process Unspecified. EDMS 11/18 00:03 No provider procedures requiring assistance completed. IV discontinued, intact, mt2 bleeding controlled, No redness/swelling at site. Pressure dressing applied. Administered Medications: No medications were administered Intake: 00:06 PO: 0ml; IV: 0ml; Total: 0ml. mt2 Outcome: 11/17 23:54 Discharge ordered by . tw4 11/18 00:06 CT RESULTSPatient's length of stay extended due to mt2 01:02 Discharged to home via wheelchair. mt2 01:02 Condition: good 01:02 Discharge instructions given to family, Instructed on discharge instructions, follow up and referral plans. safety practices, Demonstrated understanding of instructions. 01:02 Patient left the ED. mt2 Signatures: Dispatcher [employer] EDMT Zaida Brooke, RN RN lp1 Jh Price ds4 Joe Murphy MD MD tw4 Emy Jimenez RN RN mt2
--- NOTE | 2019-11-18 23:54 | EDPHYS ---
Physician Documentation [facility] Name: Dalton King Age: 74 yrs Sex: Male : 1945 Arrival Date: 11/18/2019 Time: 21:53 Bed 15 Private MD: ED Physician Joe Murphy HPI: 11/18 06:03 This 74 yrs old Male presents to ER via EMS with complaints of Fall Injury. tw4 06:03 Details of fall: The patient fell from seated position, off the edge of a bed. Onset: tw4 The symptoms/episode began/occurred just prior to arrival. Associated injuries: The patient sustained injury to the head. Severity of symptoms: At their worst the symptoms were mild, in the emergency department the symptoms are unchanged. The patient has not experienced similar symptoms in the past. Historical: - Allergies: 11/17 22:06 No Known Allergies; lp1 - Home Meds: 22:06 calcium carbonate 600 mg (1,500 mg) oral tab twice a day [Active]; prednisone 5 mg Oral lp1 tab 1 tab 2 times per day [Active]; abiraterone 250mg Oral 4 tabs once daily [Active]; Myrbetriq 25 mg Oral Tb24 1 tab once daily [Active]; valsartan 320 mg Oral tab once daily [Active]; acetaminophen-codeine 300-60 mg Oral tab [Active]; donepezil 10 mg Oral tab 2 tab once daily [Active]; folic acid 1 mg Oral tab 1 tab once daily [Active]; amlodipine 10 mg tab 1 tab once daily [Active]; carvedilol 6.25 mg Oral tab 2 times per day [Active]; escitalopram oxalate 10 mg oral tab once daily [Active]; memantine 7mg Oral once daily [Active]; - PMHx: 22:06 Alzheimer's; Cancer; Dementia; Depression; Hypertension; Prostate; lp1 - PSHx: 22:06 Unable to obtain; lp1 - Immunization history:: Adult Immunizations up to date. - Immunization history: Last tetanus immunization: unknown. - Social history:: Smoking status: unknown. ROS: 11/18 06:03 Constitutional: Negative for fever, chills, and weight loss, Eyes: Negative for injury, tw4 pain, redness, and discharge, Cardiovascular: Negative for chest pain, palpitations, and edema, Respiratory: Negative for shortness of breath, cough, wheezing, and pleuritic chest pain, Abdomen/GI: Negative for abdominal pain, nausea, vomiting, diarrhea, and constipation, Back: Negative for injury and pain, MS/Extremity: Negative for injury and deformity, Skin: Negative for injury, rash, and discoloration, Neuro: Negative for headache, weakness, numbness, tingling, and seizure. Exam: 06:03 Constitutional: This is a well developed, well nourished patient who is awake, alert, tw4 and in no acute distress. Head/Face: Normocephalic, atraumatic. Chest/axilla: Normal chest wall appearance and motion. Nontender with no deformity. No lesions are appreciated. Cardiovascular: Regular rate and rhythm with a normal S1 and S2. No gallops, murmurs, or rubs. Normal PMI, no JVD. No pulse deficits. Respiratory: Lungs have equal breath sounds bilaterally, clear to auscultation and percussion. No rales, rhonchi or wheezes noted. No increased work of breathing, no retractions or nasal flaring. Abdomen/GI: Soft, non-tender, with normal bowel sounds. No distension or tympany. No guarding or rebound. No evidence of tenderness throughout. Back: No spinal tenderness. No costovertebral tenderness. Full range of motion. MS/ Extremity: Pulses equal, no cyanosis. Neurovascular intact. Full, normal range of motion. 06:03 Neuro: Orientation: to person, place, Mentation: appropriate for stated age, slow to respond, Memory: appropriate for stated age, Cranial nerves: CN II- XII are normal as tested, Motor: moves all fours, Gait: unable to assess, the patient is nonambulatory, needs assistance. Vital Signs: 11/17 21:58 BP 158 / 80; Pulse 60; Resp 18; Temp 98.6(O); Pulse Ox 93% on R/A; Weight 90.72 kg; lp1 23:00 BP 156 / 81; Pulse 89; Resp 16; Pulse Ox 95% on R/A; Pain 0/10; mt2 11/18 00:04 BP 156 / 83; Pulse 69; Resp 16; Temp 97.9; Pulse Ox 97% on R/A; Pain 0/10; mt2 [place] Coma Score: 11/17 22:06 Eye Response: spontaneous(4). Verbal Response: oriented(5). Motor Response: obeys lp1 commands(6). Total: 15. 22:06 Eye Response: spontaneous(4). Verbal Response: confused(4). Motor Response: obeys mt2 commands(6). Total: 14. Trauma Score (Adult): 22:06 Eye Response: spontaneous(1); Verbal Response: oriented(1); Motor Response: obeys lp1 commands(2); Systolic BP: > 89 mm Hg(4); Respiratory Rate: 10 to 29 per min(4); Ivanna Score: 15; Trauma Score: 12 22:06 Eye Response: spontaneous(1); Verbal Response: confused(1); Motor Response: obeys mt2 commands(2); Systolic BP: > 89 mm Hg(4); Respiratory Rate: 10 to 29 per min(4); [place] Score: 14; Trauma Score: 12 MDM: 21:57 Patient medically screened. tw4 11/18 06:03 Differential diagnosis: abrasion, closed head injury, contusion. Data reviewed: vital tw4 signs, nurses notes. Data reviewed: radiologic studies, CT scan. Data interpreted: Pulse oximetry: Interpretation: normal. Counseling: I had a detailed discussion with the patient and/or guardian regarding: the historical points, exam findings, and any diagnostic results supporting the discharge/admit diagnosis, radiology results. Special discussion: I discussed with the patient/guardian in detail that at this point there is no indication for admission to the hospital. It is understood, however, that if the symptoms persist or worsen the patient needs to return immediately for re-evaluation. 11/17 21:55 Order name: CT Head C Spine tw4 Administered Medications: No medications were administered Disposition: 11/18/19 23:54 Discharged to Home. Impression: mechanical fall. - Condition is Stable. - Discharge Instructions: Fall Prevention in the Home, Fall Prevention in Hospitals, Adult. - Medication Reconciliation Form, Thank You Letter, Antibiotic Education, Prescription Opioid Use form. - Follow up: Private Physician; When: Upon discharge from the Emergency Department; Reason: Recheck today's complaints, Continuance of care, Re-evaluation by your physician. - Problem is new. - Symptoms have improved. Signatures: Dispatcher [employer] EDMS Brooke, Zaida, RN RN lp1 Joe Murphy MD MD tw4 Emy Jimenez RN RN mt2 Corrections: (The following items were deleted from the chart) 01:02 11/17 23:54 11/18/2019 23:54 Discharged to Home. Impression: mechanical fall. Condition mt2 is Stable. Forms are Medication Reconciliation Form, Thank You Letter, Antibiotic Education, Prescription Opioid Use. Follow up: Private Physician; When: Upon discharge from the Emergency Department; Reason: Recheck today's complaints, Continuance of care, Re-evaluation by your physician. Problem is new. Symptoms have improved. tw4
[2019-11-19 01:12] VITALS: BP 156/83; TEMP 97.9; O2SAT 97
--- NOTE | 2019-11-19 09:36 | RAD REPORT ---
EXAM DESCRIPTION: CT - CTHCSPWOC - 11/18/2019 10:35 pm CLINICAL HISTORY: The patient is 74 years old and is Male; fall TECHNIQUE: Axial computed tomography images of the head/brain and cervical spine without intravenous contrast. Sagittal and coronal reformatted images were created and reviewed. This CT exam was pe rformed using one or more of the following dose reduction techniques: automated exposure control, a djustment of the mA and/or kV according to patient size, and/or use of iterative reconstruction techn ique. DLP: 1210 mGy*cm COMPARISON: CT head and cervical spine dated 11/04/2019. FINDINGS: BRAIN: No intracranial hemorrhage. No mass effect. No extra-axial collection. Prominenc e of cerebral sulci and cisterns. Confluent periventricular and subcortical white matter hypodensity. VENTRICLES: Unchanged diffuse prominence of ventricular system without hydrocephalus. SKULL: No acute fracture. SINUSES: Unremarkable as visualized. No acute sinusitis. MASTOID AIR CELLS: Unremarkable as visualized. No mastoid effusion. VERTEBRAE: Reversal of cervical lordosis. Spondylosis with spinal canal narrowing and bilateral foraminal stenosis at C5-6. Small anterolisthesis C4 and C5. No acute fracture. DISCS/SPINAL CANAL/NEURAL FORAMINA: Multilevel disc space narrowing. SOFT TISSUES: Unremarkable. VASCULATURE: Vascular calcifications. LUNG APICES: Apical lung zones are clear. IMPRESSION: 1. No acute intracranial hemorrhage, mass effect or herniation. 2. No acute cervical spine abnormality. 3. Unchanged marked cerebral volume loss and chronic small vessel ischemic changes. 4. Multilevel degenerative changes. Electronically signed by: Sotero Sanchez DO 11/18/2019 10:29 PM CDT Due to temporary technical issues with the PACS/Fluency reporting system, reports are being signed by the in house radiologist without review as a courtesy to ensure prompt reporting. The interpreting r adiologist is fully responsible for the content of the report.
== END 2019-11-19 01:02 | disposition home or self-care (01) ==
LOC: ER 21:47
DX: Z04.3 Encounter for examination and observation following other accident (principal); W06.XXXA Fall from bed, initial encounter; Y93.9 Activity, unspecified; Y92.9 Unspecified place or not applicable; I10 Essential (primary) hypertension; G30.9 Alzheimer's disease, unspecified; F02.80 Dementia in other diseases classified elsewhere, unspecified severity, without behavioral disturbance, psychotic disturbance, mood disturbance, and anxiety; F32.9 Major depressive disorder, single episode, unspecified
CPT/HCPCS: 70450; 72125; 99284; G0390

== ENCOUNTER 2020-03-11 16:39 | Emergency (ER) | payer OTHER, BC ==
--- OUTSIDE RECORDS SUMMARY | 2020-03-11 16:41 | XMS REPORT | Continuity of Care Document ---
:1945 Author Organization [facility] t Address [address] [place] [address] Dr. Mas [address] [place] [id number] Care Team Providers Name Role Phone Unavailable Unavailable Unavailable Problems This patient has no known problems. Allergies, Adverse Reactions, Alerts This patient has no known allergies or adverse reactions. Medications This patient has no known medications. Procedures This patient has no known procedures. Results This patient has no known results.
--- NOTE | 2020-03-11 17:34 | RAD REPORT ---
EXAM DESCRIPTION: CT - CTHCSPWOC - 03/11/2020 5:17 pm CLINICAL HISTORY: Trauma, head and neck injury. PAIN COMPARISON: Head C Spine Mpr Wo Con dated 11/18/2019; Head C Spine Mpr Wo Con dated 11/04/2019 TECHNIQUE: Axial 5 mm thick images of the head were obtained. Axial 2 mm thick images of the cervical spine were obtained with sagittal and coronal reconstruction images generated and reviewed. All CT scans are performed using dose optimization technique as appropriate and may include automated exposure control or mA/KV adjustment according to patient size. FINDINGS: CT HEAD WITHOUT CONTRAST: No acute hemorrhage, hydrocephalus or extra-axial collection is identified.Moderate generalized brain atrophy.No areas of brain edema or midline shift. The paranasal sinuses and mastoids are clear.The calvarium is intact. CT CERVICAL SPINE WITHOUT CONTRAST: No fracture or subluxation.Mild mid cervical degenerative changes.No prevertebral soft tissues swelli ng is identified. Carotid atherosclerosis. IMPRESSION: No acute intracranial or cervical spine findings.
--- NOTE | 2020-03-11 17:58 | EDPHYS ---
Physician Documentation [facility] Name: Dalton King Age: 74 yrs Sex: Male : 1945 Arrival Date: 03/11/2020 Time: 16:45 Bed 5 Private MD: ED Physician Wisam Tomlinson HPI: 03/11 18:36 This 74 yrs old Male presents to ER via EMS with complaints of Fall Injury. kdr 18:36 Details of fall: The patient fell from an upright position, while walking. Onset: The kdr symptoms/episode began/occurred suddenly, just prior to arrival. Associated injuries: The patient sustained injury to the head. Severity of symptoms: At their worst the symptoms were mild, in the emergency department the symptoms have improved, mildly. The patient has not experienced similar symptoms in the past. The patient has not recently seen a physician. Historical: - Allergies: 16:55 No Known Allergies; ss - Home Meds: 16:55 hydrochlorothiazide 25 mg Oral tab 1 tab once daily [Active]; memantine 7mg Oral once ss daily [Active]; Myrbetriq 25 mg Oral Tb24 1 tab once daily [Active]; oxycarbazepime 300 mg 1 tab PO BID [Active]; potassium chloride 10 mEq Oral TbER 1 tab once daily [Active]; prednisone 5 mg Oral tab 1 tab 2 times per day [Active]; tamsulosin 0.4 mg oral cp24 1 cap once daily [Active]; valsartan 320 mg Oral tab once daily [Active]; 16:57 abiraterone 250mg Oral 4 tabs once daily [Active]; acetaminophen-codeine 300-30 mg oral ss tab 1 tab every 4 hours [Active]; amlodipine 10 mg tab 1 tab once daily [Active]; calcium carbonate 600 mg (1,500 mg) Oral tab twice a day [Active]; carvedilol 6.25 mg Oral tab 2 times per day [Active]; clonazepam 0.5 mg Oral tab 1 tab 3 times per day [Active]; cromolyn 5.2 mg/spray (4 %) Nasal spry 1 spray 3 times per day [Active]; donepezil 10 mg Oral tab 2 tab once daily [Active]; escitalopram oxalate 10 mg Oral tab once daily [Active]; folic acid 1 mg Oral tab 1 tab once daily [Active]; - PMHx: 16:55 Alzheimer's; Cancer; Dementia; Depression; Hypertension; Prostate; pseudobulbar effect; ss - Immunization history:: Adult Immunizations up to date. - Social history:: Smoking status: Patient denies any tobacco usage or history of. ROS: 18:36 Constitutional: Negative for fever, chills, and weight loss, Eyes: Negative for injury, kdr pain, redness, and discharge, ENT: Negative for injury, pain, and discharge, Neck: Negative for injury, pain, and swelling, Cardiovascular: Negative for chest pain, palpitations, and edema, Respiratory: Negative for shortness of breath, cough, wheezing, and pleuritic chest pain, Abdomen/GI: Negative for abdominal pain, nausea, vomiting, diarrhea, and constipation, Back: Negative for injury and pain, : Negative for injury, bleeding, discharge, and swelling, MS/Extremity: Negative for injury and deformity, Skin: Negative for injury, rash, and discoloration, Neuro: Negative for headache, weakness, numbness, tingling, and seizure activity. Psych: Negative for depression, anxiety, suicide ideation, homicidal ideation, and hallucinations, Allergy/Immunology: Negative for hives, rash, and allergies, Endocrine: Negative for neck swelling, polydipsia, polyuria, polyphagia, and marked weight changes, Hematologic/Lymphatic: Negative for swollen nodes, abnormal bleeding, and unusual bruising. 18:36 Cardiovascular: 18:36 Neuro: Positive for head injury. Exam: 18:38 Constitutional: This is a well developed, well nourished patient who is awake, alert, kdr and in no acute distress. Eyes: Pupils equal round and reactive to light, extra-ocular motions intact. Lids and lashes normal. Conjunctiva and sclera are non-icteric and not injected. Cornea within normal limits. Periorbital areas with no swelling, redness, or edema. Neck: Trachea midline, no thyromegaly or masses palpated, and no cervical lymphadenopathy. Supple, full range of motion without nuchal rigidity, or vertebral point tenderness. No Meningismus. Chest/axilla: Normal chest wall appearance and motion. Nontender with no deformity. No lesions are appreciated. Cardiovascular: Regular rate and rhythm with a normal S1 and S2. No gallops, murmurs, or rubs. Normal PMI, no JVD. No pulse deficits. Respiratory: Lungs have equal breath sounds bilaterally, clear to auscultation and percussion. No rales, rhonchi or wheezes noted. No increased work of breathing, no retractions or nasal flaring. Abdomen/GI: Soft, non-tender, with normal bowel sounds. No distension or tympany. No guarding or rebound. No evidence of tenderness throughout. Back: No spinal tenderness. No costovertebral tenderness. Full range of motion. Skin: Warm, dry with normal turgor. Normal color with no rashes, no lesions, and no evidence of cellulitis. MS/ Extremity: Pulses equal, no cyanosis. Neurovascular intact. Full, normal range of motion. Neuro: Awake and alert, GCS 15, oriented to person, place, time, and situation. Cranial nerves II-XII grossly intact. Motor strength 5/5 in all extremities. Sensory grossly intact. Cerebellar exam normal. Normal gait. 18:38 Head/face: Noted is contusion, that is superficial, of the forehead. Vital Signs: 16:45 BP 144 / 76; Pulse 68; Resp 16; Temp 97.4(TE); Pulse Ox 95% on R/A; Pain 2/10; ss 19:33 BP 138 / 77; Pulse 66; Resp 16; Pulse Ox 97% on R/A; rv MDM: 17:58 Patient medically screened. kdr 18:38 Data reviewed: vital signs, nurses notes, radiologic studies. Counseling: I had a kdr detailed discussion with the patient and/or guardian regarding: the historical points, exam findings, and any diagnostic results supporting the discharge/admit diagnosis, radiology results, the need for outpatient follow up. 03/11 16:59 Order name: CT Head C Spine; Complete Time: 17:56 kdr Administered Medications: No medications were administered Disposition: 03/11/20 17:58 Discharged to Home. Impression: Other slipping, tripping and stumbling and falls, Other specified injuries of head. - Condition is Stable. - Discharge Instructions: Head Injury, Adult, [id number]. - Prescriptions for Tylenol 325 mg Oral Tablet - take 2 tablet by ORAL route every 6 hours as needed; 1 bottle. - Medication Reconciliation Form, Thank You Letter form. - Follow up: Private Physician; When: 2 - 3 days; Reason: If symptoms return, Further diagnostic work-up, Recheck today's complaints, Continuance of care, Re-evaluation by your physician. - Problem is new. - Symptoms have improved. Signatures: Dispatcher [employer] EDMS Wisam Tomlinson MD MD kdr Adela Prather RN RN ss Andrea Vidal RN RN rv Corrections: (The following items were deleted from the chart) 19:34 17:58 03/11/2020 17:58 Discharged to Home. Impression: Other slipping, tripping and rv stumbling and falls; Other specified injuries of head. Condition is Stable. Forms are Medication Reconciliation Form, Thank You Letter, Antibiotic Education, Prescription Opioid Use. Follow up: Private Physician; When: 2 - 3 days; Reason: If symptoms return, Further diagnostic work-up, Recheck today's complaints, Continuance of care, Re-evaluation by your physician. Problem is new. Symptoms have improved. kdr
--- NOTE | 2020-03-11 17:58 | ER ---
Nurse's Notes [facility] Name: Dalton King Age: 74 yrs Sex: Male : 1945 Arrival Date: 03/11/2020 Time: 16:45 Bed 5 Private MD: Diagnosis: Other slipping, tripping and stumbling and falls;Other specified injuries of head Presentation: 03/11 16:45 Chief complaint: EMS states: fall from standing x 2 today. Pt c/o tenderness to back of ss head. A\T\O x2 which is baseline. Denies LOC. Pt reports dizziness x 48 hours. Recently started new medication oxcarbazepine 5 days ago for pseudobulbar affect. Changes were noted after starting new medication. Coronavirus screen: Client denies travel out of the [place] in the last 14 days. Ebola Screen: Patient denies exposure to infectious person. Patient denies travel to an Ebola-affected area in the 21 days before illness onset. Initial Sepsis Screen: Does the patient meet any 2 criteria? No. Patient's initial sepsis screen is negative. Does the patient have a suspected source of infection? No. Patient's initial sepsis screen is negative. Risk Assessment: Do you want to hurt yourself or someone else? Patient reports no desire to harm self or others. Onset of symptoms was March 09, 2020. 16:45 Method Of Arrival: EMS: [facility] 16:45 Acuity: ADRI 3 ss Historical: - Allergies: 16:55 No Known Allergies; ss - Home Meds: 16:55 hydrochlorothiazide 25 mg Oral tab 1 tab once daily [Active]; memantine 7mg Oral once ss daily [Active]; Myrbetriq 25 mg Oral Tb24 1 tab once daily [Active]; oxycarbazepime 300 mg 1 tab PO BID [Active]; potassium chloride 10 mEq Oral TbER 1 tab once daily [Active]; prednisone 5 mg Oral tab 1 tab 2 times per day [Active]; tamsulosin 0.4 mg oral cp24 1 cap once daily [Active]; valsartan 320 mg Oral tab once daily [Active]; 16:57 abiraterone 250mg Oral 4 tabs once daily [Active]; acetaminophen-codeine 300-30 mg oral ss tab 1 tab every 4 hours [Active]; amlodipine 10 mg tab 1 tab once daily [Active]; calcium carbonate 600 mg (1,500 mg) Oral tab twice a day [Active]; carvedilol 6.25 mg Oral tab 2 times per day [Active]; clonazepam 0.5 mg Oral tab 1 tab 3 times per day [Active]; cromolyn 5.2 mg/spray (4 %) Nasal spry 1 spray 3 times per day [Active]; donepezil 10 mg Oral tab 2 tab once daily [Active]; escitalopram oxalate 10 mg Oral tab once daily [Active]; folic acid 1 mg Oral tab 1 tab once daily [Active]; - PMHx: 16:55 Alzheimer's; Cancer; Dementia; Depression; Hypertension; Prostate; pseudobulbar effect; ss - Immunization history:: Adult Immunizations up to date. - Social history:: Smoking status: Patient denies any tobacco usage or history of. Screenin:11 Abuse screen: Denies threats or abuse. Denies injuries from another. Nutritional hb screening: No deficits noted. Tuberculosis screening: No symptoms or risk factors identified. Fall Risk Total Campo Fall Scale indicates Low Risk Score (25-44 pts). Fall prevention measures have been instituted. Side Rails Up X 2 Frequent Obs/Assesments occuring Family Present and informed to notify staff if they need to leave bedside As available Patient and Family Educated on Fall Prevention Program and strategies. Assessment: 17:11 General: Appears in no apparent distress. Behavior is calm, cooperative. Pain: Pain hb currently is 2 out of 10 on a pain scale. Neuro: Level of Consciousness is awake, alert, obeys commands, Oriented to person, place. Cardiovascular: Capillary refill < 3 seconds Patient's skin is warm and dry. Respiratory: Respiratory effort is even, unlabored, Respiratory pattern is regular, symmetrical. GI: No signs and/or symptoms were reported involving the gastrointestinal system. : No signs and/or symptoms were reported regarding the genitourinary system. EENT: No signs and/or symptoms were reported regarding the EENT system. Derm: Skin is pink, warm \T\ dry. Musculoskeletal: No signs and/or symptoms reported regarding the musculoskeletal system. 18:00 Reassessment: Patient appears in no apparent distress at this time. No changes from zb previously documented assessment. 18:35 Reassessment: Brandee GAMINO at [facility] notified pt discharged. Awaiting transportation at this time. Vital Signs: 16:45 BP 144 / 76; Pulse 68; Resp 16; Temp 97.4(TE); Pulse Ox 95% on R/A; Pain 2/10; ss 19:33 BP 138 / 77; Pulse 66; Resp 16; Pulse Ox 97% on R/A; rv ED Course: 16:45 Patient arrived in ED. ss 16:48 Triage completed. ss 16:54 Wisam Tomlinson MD is Attending Physician. kdr 17:11 Valencia Briscoe, RN is Primary Nurse. hb 17:11 Arm band placed on. hb 17:13 Patient has correct armband on for positive identification. Bed in low position. Call hb light in reach. 17:19 CT Head C Spine In Process Unspecified. EDMS 19:33 No provider procedures requiring assistance completed. Patient did not have IV access rv during this emergency room visit. Administered Medications: No medications were administered Outcome: 17:58 Discharge ordered by . kdr 19:34 Discharged to home via wheelchair, with family. rv 19:34 Condition: good 19:34 Discharge instructions given to family, Instructed on discharge instructions, follow up and referral plans. medication usage, Demonstrated understanding of instructions, follow-up care, medications, Prescriptions given X 1. 19:34 Patient left the ED. rv Signatures: Dispatcher [employer] EDMS Wisam Tomlinson MD MD [facility] Adela Prather RN RN Valencia Briscoe, RN HANNY Andrea Vidal RN RN Qian Peralta RN HANNY zb Corrections: (The following items were deleted from the chart) 18:39 18:35 Reassessment: at [facility] notified pt discharged. Awaiting transportation at this time. zb
[2020-03-12 03:09] VITALS: TEMP 97.4
[2020-03-12 03:10] VITALS: BP 138/77; O2SAT 97
== END 2020-03-11 19:34 | disposition home or self-care (01) ==
LOC: ER 16:39
DX: S09.8XXA Other specified injuries of head, initial encounter (principal); W01.0XXA Fall on same level from slipping, tripping and stumbling without subsequent striking against object, initial encounter; Y93.9 Activity, unspecified; Y92.9 Unspecified place or not applicable; I10 Essential (primary) hypertension; G30.9 Alzheimer's disease, unspecified; F02.80 Dementia in other diseases classified elsewhere, unspecified severity, without behavioral disturbance, psychotic disturbance, mood disturbance, and anxiety
CPT/HCPCS: 70450; 72125; 99283

== ENCOUNTER 2020-04-20 06:10 | Emergency (ER) | payer OTHER, BC ==
--- OUTSIDE RECORDS SUMMARY | 2020-04-20 06:12 | XMS REPORT | Continuity of Care Document ---
:1945 Author Organization [facility] t Address [address] [place] [address] Dr. Mckeon. [address] [place] [id number] Care Team Providers Name Role Phone DR YULIYA Attending Clinician Unavailable DR YULIYA Admitting Clinician Unavailable Problems This patient has no known problems. Allergies, Adverse Reactions, Alerts This patient has no known allergies or adverse reactions. Medications This patient has no known medications. Procedures This patient has no known procedures. Encounters Start End Encounter Admission Attending Care Care Encounter Source Date/Time Date/Time Type Type Clinicians Facility Department ID 2020-03-12 2020-03-28 Inpatient E YULIYA [facility] [id number] [address] [place] [address] 13:02:00 12:45:00 [facility] Results Test Description Test Time Test Comments Results Result Comments Source SARS-CoV (RAPID ANTIGEN) 2020-03-28 12:39:00 Test Item Value Reference Range Interpretation Comme nts SARS-CoV (ANTIGEN) (test code = NEGATIVE NEGATIVE COVAG) COVID AG (test code = COVAGC) This test has been marketed under the FDA Emergency Use Authorization (EUA) to meet challenges of the COVID-19 pandemic. The validation standards normally enforced by the FDA and the [employer] the [place] [employer] (CAP) are more stringent than those required for this test. Therefore, the result should be interpreted with caution and close attention to other clinical and epidemiological data BASIC METABOLIC [id number] 08:41:00 Test Item Value Reference Range Interpretation Comments GLUCOSE (test code = 85 mg/dL 75-100 06D) SODIUM (test code = 133 mmol/L 136-145 L 01A) POTASSIUM (test code = 3.7 mmol/L 3.6-5.1 01B) CHLORIDE (test code = 96 mmol/L 98-107 L 04A) CO2 (test code = 02A) 33 mmol/L 22-32 H ANION GAP (test code = 7.7 mmol/L ANG) BUN (test code = 05D) 19 mg/dL 7-18 H CREATININE (test code 0.8 mg/dL 0.7-1.3 = 03E) GFR (test code = GFR) 88 mL/min/1.73m\S\2 >=90 L GFR 102 mL/min/1.73m\S\2 >=90 (test code = GFRAA) EGFR (test code = eGFR BY CKD-EPI EGFR) CALCULATION IS NOT RECOMMENDED FOR PATIENTS UNDER 18 YEARS OF AGE. BUN/CREA (test code = 24 12-20 H BCR) CALCIUM (test code = 8.8 mg/dL 8.3-9.5 09D) BASIC METABOLIC [id number] 09:24:00 Test Item Value Reference Range Interpretation Comments GLUCOSE (test code = 142 mg/dL 75-100 H 06D) SODIUM (test code = 136 mmol/L 136-145 01A) POTASSIUM (test code = 3.3 mmol/L 3.6-5.1 L 01B) CHLORIDE (test code = 96 mmol/L 98-107 L 04A) CO2 (test code = 02A) 30 mmol/L 22-32 ANION GAP (test code = 13.3 mmol/L ANG) BUN (test code = 05D) 19 mg/dL 7-18 H CREATININE (test code 0.9 mg/dL 0.7-1.3 = 03E) GFR (test code = GFR) 85 mL/min/1.73m\S\2 >=90 L GFR 98 mL/min/1.73m\S\2 >=90 (test code = GFRAA) EGFR (test code = eGFR BY CKD-EPI EGFR) CALCULATION IS NOT RECOMMENDED FOR PATIENTS UNDER 18 YEARS OF AGE. BUN/CREA (test code = 22 12-20 H BCR) CALCIUM (test code = 9.1 mg/dL 8.3-9.5 09D) BASIC METABOLIC [id number] 14:15:00 Test Item Value Reference Range Interpretation Comments GLUCOSE (test code = 131 mg/dL 75-100 H 06D) SODIUM (test code = 138 mmol/L 136-145 01A) POTASSIUM (test code = 3.2 mmol/L 3.6-5.1 L 01B) CHLORIDE (test code = 94 mmol/L 98-107 L 04A) CO2 (test code = 02A) 36 mmol/L 22-32 H ANION GAP (test code = 11.2 mmol/L ANG) BUN (test code = 05D) 20 mg/dL 7-18 H CREATININE (test code 1.1 mg/dL 0.7-1.3 = 03E) GFR (test code = GFR) 64 mL/min/1.73m\S\2 >=90 L GFR 74 mL/min/1.73m\S\2 >=90 L (test code = GFRAA) EGFR (test code = eGFR BY CKD-EPI EGFR) CALCULATION IS NOT RECOMMENDED FOR PATIENTS UNDER 18 YEARS OF AGE. BUN/CREA (test code = 18 12-20 BCR) CALCIUM (test code = 9.0 mg/dL 8.3-9.5 09D) BASIC METABOLIC [id number] 07:53:00 Test Item Value Reference Range Interpretation Comments GLUCOSE (test code = 145 mg/dL 75-100 H 06D) SODIUM (test code = 136 mmol/L 136-145 01A) POTASSIUM (test code = 3.7 mmol/L 3.6-5.1 01B) CHLORIDE (test code = 98 mmol/L 98-107 04A) CO2 (test code = 02A) 30 mmol/L 22-32 ANION GAP (test code = 11.7 mmol/L ANG) BUN (test code = 05D) 30 mg/dL 7-18 H CREATININE (test code 1.2 mg/dL 0.7-1.3 = 03E) GFR (test code = GFR) 59 mL/min/1.73m\S\2 >=90 L GFR 69 mL/min/1.73m\S\2 >=90 L (test code = GFRAA) EGFR (test code = eGFR BY CKD-EPI EGFR) CALCULATION IS NOT RECOMMENDED FOR PATIENTS UNDER 18 YEARS OF AGE. BUN/CREA (test code = 25 12-20 H BCR) CALCIUM (test code = 9.3 mg/dL 8.3-9.5 09D) BASIC METABOLIC [id number] 13:30:00 Test Item Value Reference Range Interpretation Comments GLUCOSE (test code = 110 mg/dL 75-100 H 06D) SODIUM (test code = 136 mmol/L 136-145 01A) POTASSIUM (test code = 3.8 mmol/L 3.6-5.1 01B) CHLORIDE (test code = 96 mmol/L 98-107 L 04A) CO2 (test code = 02A) 35 mmol/L 22-32 H ANION GAP (test code = 8.8 mmol/L ANG) BUN (test code = 05D) 25 mg/dL 7-18 H CREATININE (test code 0.9 mg/dL 0.7-1.3 = 03E) GFR (test code = GFR) 85 mL/min/1.73m\S\2 >=90 L GFR 98 mL/min/1.73m\S\2 >=90 (test code = GFRAA) EGFR (test code = eGFR BY CKD-EPI EGFR) CALCULATION IS NOT RECOMMENDED FOR PATIENTS UNDER 18 YEARS OF AGE. BUN/CREA (test code = 29 12-20 H BCR) CALCIUM (test code = 9.3 mg/dL 8.3-9.5 09D) BASIC METABOLIC [id number] 11:12:00 Test Item Value Reference Range Interpretation Comments GLUCOSE (test code = 91 mg/dL 75-100 06D) SODIUM (test code = 139 mmol/L 136-145 01A) POTASSIUM (test code = 3.6 mmol/L 3.6-5.1 01B) CHLORIDE (test code = 101 mmol/L 98-107 04A) CO2 (test code = 02A) 29 mmol/L 22-32 ANION GAP (test code = 12.6 mmol/L ANG) BUN (test code = 05D) 21 mg/dL 7-18 H CREATININE (test code 0.8 mg/dL 0.7-1.3 = 03E) GFR (test code = GFR) 86 mL/min/1.73m\S\2 >=90 L GFR 100 mL/min/1.73m\S\2 >=90 (test code = GFRAA) EGFR (test code = eGFR BY CKD-EPI EGFR) CALCULATION IS NOT RECOMMENDED FOR PATIENTS UNDER 18 YEARS OF AGE. BUN/CREA (test code = 25 12-20 H BCR) CALCIUM (test code = 8.7 mg/dL 8.3-9.5 09D) [id number] 06:54:00 Test Item Value Reference Range Interpretation Comments FOLATE (test code = A75) 50.5 ng/mL 3.1-17.5 H THYROID PANEL/SCREEN (TSH)2020-03-13 06:46:00 Test Item Value Reference Range Interpretation Comments TSH (test code = A57) 1.390 uIU/mL 0.358-3.740 B12 [id number] 06:35:00 Test Item Value Reference Range Interpretation Comments VIT B12 (test code = A60) 203.0 pg/mL 180.0-914.0 [id number] 06:35:00 Test Item Value Reference Range Interpretation Comments PREALBUMIN (test code = 08E) 21 mg/dL 18-38 [id number] 06:15:00 Test Item Value Reference Range Interpretation Comments Hb A1C % (test code 5.8 % 3.8-6.4 = HBA) A1C % (test code = HbA1c (% ) A1C) Reference Range Normal <5.7 Prediabetes 5.7-6.4 Diabetic >=6.5 LIPID [id number] 06:11:00 Test Item Value Reference Range Interpretation Comments CHOLESTROL (test code = 44A) 188 mg/dL 140-200 TRIGLYCERI (test code = 42B) 173 mg/dL <=149 H HDL (test code = 83D) 44.0 mg/dL 40.0-60.0 LDL (test code = 34B) 114 mg/dL <=99 H CHL/HDL (test code = CHR) 4.3 0.0-3.4 H [id number] 21:57:00 Test Item Value Reference Range Interpretation Comments MAGNESIUM (test code = 48A) 2.3 mg/dL 1.8-2.4 [id number] 16:04:00 Test Item Value Reference Range Interpretation Comments COLOR (test code = COLU) YELLOW YELLOW CLARITY (test code = CLA) CLEAR CLEAR GLUCOSE UR (test code = UA GLUCOSE) NEGATIVE NEGATIVE BILI UR (test code = BILE) NEGATIVE NEGATIVE KETONES UR (test code = DEANDRA) NEGATIVE NEGATIVE SP GRAVITY (test code = SPGR) 1.012 1.005-1.030 PH UR (test code = PH) 7.0 4.5-8.0 PROTEIN UR (test code = PU) NEGATIVE NEGATIVE UROBIL UR (test code = UROQ) 0.2 EU/dL 0.2-1.0 NITRITE UR (test code = NITRITE) NEGATIVE NEGATIVE BLOOD UR (test code = UA BLOOD) NEGATIVE NEGATIVE LEUK ES UR (test code = LEUK) NEGATIVE NEGATIVE DRUGS OF [id number] 16:00:00 Test Item Value Reference Range Interpretation Comments DRUG SCRN (test code URINE DRUG SCREEN = HDOA) This is an unconfirmed screening result and should not be used for non-medical purposes CANNABINOD (test code Negative NEGATIVE = 88C) AMPHETAMINE (test Negative NEGATIVE code = 84A) BENZODIAZP (test code Negative NEGATIVE = 86A) BARBITURAT (test code Negative NEGATIVE = 85A) OPIATES (test code = Negative NEGATIVE 92B) COCAINE (test code = Negative NEGATIVE 87A) PHENCYCLID (test code Negative NEGATIVE = 66A) METHADONE (test code Negative NEGATIVE = 64A) DOAH (test code = DOAH.) *URINE DRUG SCREEN Cut-off values are as follows: Cannabinoids 50 ng/mL Cocaine 300 ng/mL Amphetamines 1000 ng/mL Phencyclidine 25 ng/mL Benzodiazepines 200 ng.mL Methadone 300 ng/mL Barbiturates 200 ng/mL Opiates 2000 ng/mL LIVER [id number] 14:46:00 Test Item Value Reference Range Interpretation Comments BILI TOTAL (test code 0.4 mg/dL 0.2-1.0 = 11A) BILI DIRCT (test code <0.1 mg/dL 0.0-0.2 Unabl e to calculate = 12A) Indirect Bili d ue to low test result s PROTEIN (test code = 7.1 g/dL 6.4-8.2 07D) ALBUMIN (test code = 3.4 g/dL 3.5-4.8 L 08D) GLOBULIN (test code = 3.7 g/dL 1.5-3.8 GLB) ALB/GLOB (test code = 0.9 1.0-2.6 L AGRR) ALK PHOS (test code = 55 IU/L 42-121 35A) AST (test code = 30A) 16 IU/L <=42 ALT (test code = 31A) 19 IU/L <=78 ALCOHOL BLOOD (ETOH)2020-03-12 14:46:00 Test Item Value Reference Range Interpretation Comments ETOH (test code = HALC) ETHANOL The result is to be used only for medical purposes ALCOHOL (test code = <10 mg/dL <=10 56A) [id number] 14:36:00 Test Item Value Reference Range Interpretation Comments ACETAMINPH (test code = 94M) <2.0 ug/mL 10.0-30.0 L [id number] 14:36:00 Test Item Value Reference Range Interpretation Comments CPK (test code = 32A) 56 IU/L 39-308 [id number] 14:35:00 Test Item Value Reference Range Interpretation Comments FERRITIN (test code = A19) 165.6 ng/mL 26.0-388.0 LDH-LACTIC [id number] 14:35:00 Test Item Value Reference Range Interpretation Comments LDH (test code = 33A) 186 IU/L 87-241 CARDIAC [id number] 14:20:00 Test Item Value Reference Range Interpretation Comments TROPONIN I (test code = A84) <0.015 ng/mL 0.000-0.045 C-REACTIVE PROTEIN [id number] 14:20:00 Test Item Value Reference Range Interpretation Comments CRP QUANT (test code <2.9 mg/L 0.0-2.9 = CRPQ) Method Change (test Please note the code = METHOD) change in Method and the reference range BASIC METABOLIC [id number] 14:18:00 Test Item Value Reference Range Interpretation Comments GLUCOSE (test code = 102 mg/dL 75-100 H 06D) SODIUM (test code = 138 mmol/L 136-145 01A) POTASSIUM (test code = 3.5 mmol/L 3.6-5.1 L 01B) CHLORIDE (test code = 100 mmol/L 98-107 04A) CO2 (test code = 02A) 33 mmol/L 22-32 H ANION GAP (test code = 8.5 mmol/L ANG) BUN (test code = 05D) 20 mg/dL 7-18 H CREATININE (test code 1.0 mg/dL 0.7-1.3 = 03E) GFR (test code = GFR) 78 mL/min/1.73m\S\2 >=90 L GFR 91 mL/min/1.73m\S\2 >=90 (test code = GFRAA) EGFR (test code = eGFR BY CKD-EPI EGFR) CALCULATION IS NOT RECOMMENDED FOR PATIENTS UNDER 18 YEARS OF AGE. BUN/CREA (test code = 21 12-20 H BCR) CALCIUM (test code = 9.1 mg/dL 8.3-9.5 09D) AMMONIA [id number] 14:14:00 Test Item Value Reference Range Interpretation Comments AMMONIA (test code = 54A) 29 umol/L 11-32 [id number] 14:14:00 Test Item Value Reference Range Interpretation Comments SALICYLATE (test code = 94B) <1.7 mg/dL 2.8-20.0 L SARS-CoV (RAPID ANTIGEN)2020-03-12 14:06:00 Test Item Value Reference Range Interpretation Comments SARS-CoV (ANTIGEN) NEGATIVE NEGATIVE (test code = COVAG) COVID AG (test This test has been code = COVAGC) marketed under the FDA Emergency Use Authorization (EUA) to meet challenges of the COVID-19 pandemic. The validation standards normally enforced by the FDA and the [employer] the [place] [employer] (CAP) are more stringent than those required for this test. Therefore, the result should be interpreted with caution and close attention to other clinical and epidemiological data [id number] 13:55:00 Test Item Value Reference Range Interpretation Comments D-DIMER (test code = <200 ng/mL D-DU 0-234 DDI) D-DIMER COMMENT (test *Level to rule out code = DDCOM) DVT or PE: <235 ng/mL D-DU* CBC (INCLUDES AUTOMATED DIFFERENTIAL)2020-03-12 13:51:00 Test Item Value Reference Range Interpretation Comments WBC (test code = WBC) 11.3 10\S\3/uL 4.5-11.0 H RBC (test code = RBC) 4.16 10\S\6/uL 3.80-5.80 HGB (test code = HBG) 13.1 g/dL 14.0-18.0 L HCT (test code = HCT) 39.5 % 35.0-46.0 MCV (test code = MCV) 95.0 fL 80.0-94.0 H MCH (test code = MCH) 31.5 pg 27.0-31.0 H MCHC (test code = MCHC) 33.2 g/dL 32.0-36.0 RDW (test code = RDW) 12.9 % 11.5-14.5 PLT (test code = PLT) 279 10\S\3/uL 130-400 MPV (test code = MPV) 9.8 fL 9.4-12.4 NEUTROP # (test code = NE#) 9.4 10\S\3/uL 2.0-8.0 H LYMPH # (test code = LY#) 0.6 10\S\3/uL 1.2-4.0 L MONOCYTE # (test code = MO#) 1.1 10\S\3/uL 0.0-1.1 EOSINOPH # (test code = EO#) 0.1 10\S\3/uL 0.0-0.7 BASOPHIL # (test code = BA#) 0.0 10\S\3/uL 0.0-0.3 IG # (test code = IG#) 0.10 10\S\3/uL 0.00-0.06 H NRBC # (test code = NRBC#) 0.00 10\S\3/uL 0.00-0.01 NEUTROPH % (test code = NE%) 83.0 % 35.0-73.0 H LYMPH % (test code = LY%) 5.1 % 20.0-55.0 L MONO % (test code = MO%) 9.6 % 2.5-10.0 EOSINOPH % (test code = EO%) 1.1 % 0.0-5.0 BASOPHIL % (test code = BA%) 0.3 % 0.0-2.0 IG % (test code = IG%) 0.9 % 0.0-0.8 H NRBC% (test code = NRBC%) 0.0 % 0.0-0.2 MANDIFF (test code = MDIFF) NO NO RBC MORPH (test code = RBCMOR) NORMAL
--- NOTE | 2020-04-20 07:39 | RAD REPORT ---
EXAM DESCRIPTION: CT - CTHCSPWOC - 04/20/2020 6:55 am CLINICAL HISTORY: trauma COMPARISON: Head C Spine Mpr Wo Con dated 03/11/2020 TECHNIQUE: Axial 5 mm thick images of the head were obtained. Axial 2 mm thick images of the cervic al spine were obtained with sagittal and coronal reconstruction images generated and reviewed. All CT scans are performed using dose optimization technique as appropriate and may include automated exposure control or mA/KV adjustment according to patient size. FINDINGS: No intracranial hemorrhage, mass, edema or acute intracranial finding. No suspicion for ac avila infarction. Atrophy and chronic ischemic changes match comparison. Mastoid air cells and paranasa l sinuses are clear. No globe or orbit abnormality seen. No significant scalp hematoma. No acute vertebral fracture seen. Heights and alignment match comparison. Degenerative pattern matche s February study. Delete select Central canal detail is inherently limited. No paraspinal mass or hematoma. Dense carotid calcifications. IMPRESSION: No hemorrhage or acute intracranial finding. No fracture or acute cervical finding. No significant change from March 11.
--- NOTE | 2020-04-20 07:42 | ER ---
Nurse's Notes [facility] Name: Dalton King Age: 74 yrs Sex: Male : 1945 Arrival Date: 04/20/2020 Time: 06:16 Bed 30 Private MD: Diagnosis: Superficial injury of head Presentation: 04/20 06:17 Chief complaint: EMS states: Called for patient who had unwitnessed fall; staff member lp1 reports helping patient to bathroom, stepped out and patient was found leaning forward into shower chair, reported to staff member that he had hit his head; No LOC. Care prior to arrival: None. Mechanism of Injury: Fall from standing position. Trauma event details: Injury occurred in the [facility], Injury occurred: in a public building. Injury occurred: April 20, 2020 Injury occurred at: 05:30. 06:17 Acuity: ADRI 2 lp1 06:17 Method Of Arrival: EMS: [facility] lp1 06:20 Coronavirus screen: Client denies travel out of the [place] in the last 14 days. At this lp1 time, the client does not indicate any symptoms associated with coronavirus-19. Ebola Screen: No symptoms or risks identified at this time. Initial Sepsis Screen: Does the patient meet any 2 criteria? No. Patient's initial sepsis screen is negative. Does the patient have a suspected source of infection? No. Patient's initial sepsis screen is negative. Risk Assessment: Do you want to hurt yourself or someone else? Patient reports no desire to harm self or others. Onset of symptoms was April 20, 2020. Trauma Activation: Alert Physician: ED Physician; Name: Dr. Mas; Notified At: 06:17; Arrived At: 06:17 Physician: General Surgeon; Name: N/A; Notified At: 06:17; Arrived At: Physician: Radiology; Name: Geovanni; Notified At: 06:17; Arrived At: 06:20 Physician: Respiratory; Name: N/A; Notified At: 06:17; Arrived At: Physician: Lab; Name: N/A; Notified At: 06:17; Arrived At: Historical: - Allergies: 06:30 No Known Allergies; lp1 - Home Meds: 06:30 abiraterone 250mg Oral 4 tabs once daily [Active]; amlodipine 10 mg tab 1 tab once lp1 daily [Active]; aripiprazole 1 mg/mL oral soln 7.5 mL once daily [Active]; carvedilol 6.25 mg Oral tab 2 times per day [Active]; cromolyn 4 % ophthalmic drop 1 drop three times a day [Active]; donepezil 10 mg Oral tab 1 tab nightly [Active]; escitalopram oxalate 10 mg Oral tab 1.5 tab once daily [Active]; folic acid 1 mg Oral tab 1 tab once daily [Active]; hydrochlorothiazide 25 mg Oral tab 1 tab once daily [Active]; losartan 50 mg oral tab 1 tab once daily [Active]; acetaminophen 650 mg Oral TbER every 6 hours [Active]; melatonin 3 mg Oral tab 2 tab nightly [Active]; memantine 10 mg oral tab 1 tab 2 times per day [Active]; Myrbetriq 25 mg Oral Tb24 1 tab once daily [Active]; oxycarbazepime 300 mg 1 tab PO BID [Active]; Oyster Shell Calcium 500 500 mg calcium (1,250 mg) Oral tab twice a day [Active]; potassium chloride 10 mEq Oral TbER 1 tab once daily [Active]; prednisone 5 mg Oral tab 1 tab 2 times per day [Active]; tamsulosin 0.4 mg Oral cp24 1 cap once daily [Active]; trazodone 50 mg Oral tab daily [Active]; Vitamin D3 5,000 unit oral tab daily [Active]; - PMHx: 06:30 Alzheimer's; Cancer; Dementia; Depression; Hypertension; Prostate; pseudobulbar effect; lp1 - PSHx: 06:30 Unable to obtain; lp1 - Immunization history:: Adult Immunizations up to date. - Social history:: Smoking status: Patient denies any tobacco usage or history of. Screenin:35 Abuse screen: Denies threats or abuse. Denies injuries from another. Tuberculosis lp1 screening: No symptoms or risk factors identified. 06:36 Nutritional screening: No deficits noted. Fall Risk Total Campo Fall Scale indicates lp1 High Risk Score (45 or more points). Fall prevention measures have been instituted. Side Rails Up X 2 Placed Close to Nursing Station Frequent Obs/Assessments Occuring. Primary Survey: 06:20 NO uncontrolled hemorrhage observed. A: The patient is alert. Airway: patent, No lp1 supplemental oxygen in use on arrival. Breathing/Chest: Respiratory pattern: regular, Respiratory effort: spontaneous, unlabored, Chest inspection: symmetrical rise and fall of the chest. Circulation: Skin color: pink, Skin temperature: warm, dry. Disability Alert. Exposure/Environment: A warming method has been applied: A warm blanket has been provided to the patient. Assessment: 06:25 General: Appears in no apparent distress. Behavior is calm, cooperative. Pain: Denies lp1 pain. Neuro: Level of Consciousness is awake, alert, obeys commands, Oriented to person, place. EENT: No signs and/or symptoms were reported regarding the EENT system. Cardiovascular: Patient's skin is warm and dry. Respiratory: Airway is patent Respiratory effort is even, unlabored. GI: Abdomen is non-distended. : No signs and/or symptoms were reported regarding the genitourinary system. Derm: Skin is intact, Skin is dry, Skin is normal. Musculoskeletal: Circulation, motion, and sensation intact. Range of motion: intact in all extremities. Vital Signs: 06:20 BP 133 / 77; Pulse 62; Resp 18; Temp 97.6(O); Pulse Ox 93% on R/A; Weight 81.65 kg; lp1 07:05 BP 139 / 80; Pulse 61; Resp 14; Pulse Ox 96% on R/A; lp1 Ivanna Coma Score: 06:25 Eye Response: spontaneous(4). Verbal Response: confused(4). Motor Response: obeys lp1 commands(6). Total: 14. Trauma Score (Adult): 06:25 Eye Response: spontaneous(1); Verbal Response: confused(1); Motor Response: obeys lp1 commands(2); Systolic BP: > 89 mm Hg(4); Respiratory Rate: 10 to 29 per min(4); Vivian Score: 14; Trauma Score: 12 ED Course: 06:16 Patient arrived in ED. ea 06:17 Dereje Mas MD is Attending Physician. 7 06:20 Triage completed. lp1 06:21 Arm band placed on. lp1 06:25 Thermoregulation: warm blanket given to patient. lp1 06:33 Zaida Brooke, RN is Primary Nurse. lp1 06:36 Patient has correct armband on for positive identification. Bed in low position. Call lp1 light in reach. Side rails up X2. Pulse ox on. NIBP on. 06:36 Patient maintains SpO2 saturation greater than 95% on room air. lp1 06:55 CT Head C Spine In Process Unspecified. EDMS 07:23 Attending Physician role handed off by Dereje Mas MD rn 07:23 Chavez Seaman MD is Attending Physician. rn 09:25 [facility] called to arrange transportation for this pt. They stated that they do not em1 have a racecar driver on the weekends and gave contact number for pt sons Otis and Nelson. 09:28 Called and spoke with Otis, pt son, to arrange transportation for this pt. 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 Administered Medications: No medications were administered Outcome: 07:42 Discharge ordered by MD. rn 10:09 Discharged to home via wheelchair, with family. iw 10:09 Condition: good 10:09 Patient's length of stay in the Emergency Department was greater than 2 hours. 10:09 Patient left the ED. iw Signatures: Dispatcher [employer] Dana Villanueva RN RN iw Nieto, Roman, MD MD rn Martinez, Eric em1 Zaida Brooke RN RN 1 Corrie Pineda RN RN ea Holmes, Maurice, MD MD [id number] Corrections: (The following items were deleted from the chart) 06:34 06:20 BP 133 / 77; Pulse 62bpm; Resp 18bpm; Pulse Ox 93% RA; 81.65 kg; lp1 lp1
--- NOTE | 2020-04-20 07:43 | EDPHYS ---
Physician Documentation [facility] Name: Dalton King Age: 74 yrs Sex: Male : 1945 Arrival Date: 04/20/2020 Time: 06:16 Bed 30 Private MD: ED Physician Chavez Seaman HPI: 04/20 06:22 This 74 yrs old Male presents to ER via EMS with complaints of Fall Injury. [facility] 06:22 Details of fall: The patient fell from seated position, toilet. Onset: The [facility] symptoms/episode began/occurred today. Associated injuries: The patient sustained injury to the head, contusion. Severity of symptoms: At their worst the symptoms were mild, earlier today, in the emergency department the symptoms are unchanged. The patient has experienced similar episodes in the past, multiple times. Historical: - Allergies: 06:30 No Known Allergies; lp1 - Home Meds: 06:30 abiraterone 250mg Oral 4 tabs once daily [Active]; amlodipine 10 mg tab 1 tab once lp1 daily [Active]; aripiprazole 1 mg/mL oral soln 7.5 mL once daily [Active]; carvedilol 6.25 mg Oral tab 2 times per day [Active]; cromolyn 4 % ophthalmic drop 1 drop three times a day [Active]; donepezil 10 mg Oral tab 1 tab nightly [Active]; escitalopram oxalate 10 mg Oral tab 1.5 tab once daily [Active]; folic acid 1 mg Oral tab 1 tab once daily [Active]; hydrochlorothiazide 25 mg Oral tab 1 tab once daily [Active]; losartan 50 mg oral tab 1 tab once daily [Active]; acetaminophen 650 mg Oral TbER every 6 hours [Active]; melatonin 3 mg Oral tab 2 tab nightly [Active]; memantine 10 mg oral tab 1 tab 2 times per day [Active]; Myrbetriq 25 mg Oral Tb24 1 tab once daily [Active]; oxycarbazepime 300 mg 1 tab PO BID [Active]; Oyster Shell Calcium 500 500 mg calcium (1,250 mg) Oral tab twice a day [Active]; potassium chloride 10 mEq Oral TbER 1 tab once daily [Active]; prednisone 5 mg Oral tab 1 tab 2 times per day [Active]; tamsulosin 0.4 mg Oral cp24 1 cap once daily [Active]; trazodone 50 mg Oral tab daily [Active]; Vitamin D3 5,000 unit oral tab daily [Active]; - PMHx: 06:30 Alzheimer's; Cancer; Dementia; Depression; Hypertension; Prostate; pseudobulbar effect; lp1 - PSHx: 06:30 Unable to obtain; lp1 - Immunization history:: Adult Immunizations up to date. - Social history:: Smoking status: Patient denies any tobacco usage or history of. ROS: 06:23 Constitutional: Negative for fever, chills, and weight loss, Eyes: Negative for injury, mh7 pain, redness, and discharge, ENT: Negative for injury, pain, and discharge, Neck: Negative for injury, pain, and swelling, Cardiovascular: Negative for chest pain, palpitations, and edema, Respiratory: Negative for shortness of breath, cough, wheezing, and pleuritic chest pain, Abdomen/GI: Negative for abdominal pain, nausea, vomiting, diarrhea, and constipation, Back: Negative for injury and pain, : Negative for injury, bleeding, discharge, and swelling, MS/Extremity: Negative for injury and deformity, Skin: Negative for injury, rash, and discoloration, Psych: Negative for depression, anxiety, suicide ideation, homicidal ideation, and hallucinations, Allergy/Immunology: Negative for hives, rash, and allergies, Endocrine: Negative for neck swelling, polydipsia, polyuria, polyphagia, and marked weight changes, Hematologic/Lymphatic: Negative for swollen nodes, abnormal bleeding, and unusual bruising. 06:25 Neuro: Negative for headache, weakness, numbness, tingling, and seizure. mh7 Exam: 06:25 Constitutional: This is a well developed, well nourished patient who is awake, alert, mh7 and in no acute distress. 06:25 Eyes: Pupils equal round and reactive to light, extra-ocular motions intact. Lids and lashes normal. Conjunctiva and sclera are non-icteric and not injected. Cornea within normal limits. Periorbital areas with no swelling, redness, or edema. ENT: Nares patent. No nasal discharge, no septal abnormalities noted. Tympanic membranes are normal and external auditory canals are clear. Oropharynx with no redness, swelling, or masses, exudates, or evidence of obstruction, uvula midline. Mucous membranes moist. Neck: Trachea midline, no thyromegaly or masses palpated, and no cervical lymphadenopathy. Supple, full range of motion without nuchal rigidity, or vertebral point tenderness. No Meningismus. Chest/axilla: Normal chest wall appearance and motion. Nontender with no deformity. No lesions are appreciated. Cardiovascular: Regular rate and rhythm with a normal S1 and S2. No gallops, murmurs, or rubs. Normal PMI, no JVD. No pulse deficits. Respiratory: Lungs have equal breath sounds bilaterally, clear to auscultation and percussion. No rales, rhonchi or wheezes noted. No increased work of breathing, no retractions or nasal flaring. Abdomen/GI: Soft, non-tender, with normal bowel sounds. No distension or tympany. No guarding or rebound. No evidence of tenderness throughout. Back: No spinal tenderness. No costovertebral tenderness. Full range of motion. Skin: Warm, dry with normal turgor. Normal color with no rashes, no lesions, and no evidence of cellulitis. MS/ Extremity: Pulses equal, no cyanosis. Neurovascular intact. Full, normal range of motion. Neuro: Awake and alert, GCS 15, oriented to person, place, time, and situation. Cranial nerves II-XII grossly intact. Motor strength 5/5 in all extremities. Sensory grossly intact. Cerebellar exam normal. Normal gait. Psych: Awake, alert, with orientation to person, place and time. Behavior, mood, and affect are within normal limits. 06:25 Head/face: Noted is contusion, that is superficial, of the forehead, Sinus tenderness, is not appreciated. Vital Signs: 06:20 BP 133 / 77; Pulse 62; Resp 18; Temp 97.6(O); Pulse Ox 93% on R/A; Weight 81.65 kg; lp1 07:05 BP 139 / 80; Pulse 61; Resp 14; Pulse Ox 96% on R/A; lp1 Ivanna Coma Score: 06:25 Eye Response: spontaneous(4). Verbal Response: confused(4). Motor Response: obeys lp1 commands(6). Total: 14. Trauma Score (Adult): 06:25 Eye Response: spontaneous(1); Verbal Response: confused(1); Motor Response: obeys lp1 commands(2); Systolic BP: > 89 mm Hg(4); Respiratory Rate: 10 to 29 per min(4); [place] Score: 14; Trauma Score: 12 MDM: 07:23 Patient medically screened. rn 07:23 ED course: Signed out to me by Dr. Mas, plan is to dc home if images from fall rn without acute findings. CT head/cspine pending.. 07:41 Differential diagnosis: closed head injury, contusion, fracture. Data reviewed: vital rn signs, nurses notes, radiologic studies, CT scan, and as a result, I will discharge patient. Counseling: I had a detailed discussion with the patient and/or guardian regarding: the historical points, exam findings, and any diagnostic results supporting the discharge/admit diagnosis, radiology results, the need for outpatient follow up, to return to the emergency department if symptoms worsen or persist or if there are any questions or concerns that arise at home. Special discussion: Based on the patient's history, exam and DX evaluation, there is no indication for emergent intervention or inpatient TX. It is understood by the patient/guardian that if the SXs persist or worsen they need to return immediately for re-evaluation. I discussed with the patient/guardian in detail that at this point there is no indication for admission to the hospital. It is understood, however, that if the symptoms persist or worsen the patient needs to return immediately for re-evaluation. 04/20 06:19 Order name: CT Head C Spine; Complete Time: 07:40 mh7 Administered Medications: No medications were administered Disposition: 04/20/20 07:42 Discharged to Home. Impression: Superficial injury of head. - Condition is Stable. - Discharge Instructions: Head Injury, Adult. - Medication Reconciliation Form, Thank You Letter, Antibiotic Education, Prescription Opioid Use form. - Follow up: Private Physician; When: As needed; Reason: Recheck today's complaints, Re-evaluation by your physician. - Problem is new. - Symptoms have improved. Signatures: Dispatcher [employer] EDDana Stinson RN RN iw Nieto, Roman, MD MD rn Pena, Laura, RN RN lp1 Dereje Mas MD MD 7 Corrections: (The following items were deleted from the chart) 10:09 07:42 04/20/2020 07:42 Discharged to Home. Impression: Superficial injury of head. iw Condition is Stable. Forms are Medication Reconciliation Form, Thank You Letter, Antibiotic Education, Prescription Opioid Use. Follow up: Private Physician; When: As needed; Reason: Recheck today's complaints, Re-evaluation by your physician. Problem is new. Symptoms have improved. rn
[2020-04-20 10:21] VITALS: TEMP 97.6
[2020-04-20 10:22] VITALS: BP 139/80; O2SAT 96
== END 2020-04-20 10:09 | disposition home or self-care (01) ==
LOC: ER 06:10
DX: S00.83XA Contusion of other part of head, initial encounter (principal); W18.11XA Fall from or off toilet without subsequent striking against object, initial encounter; Y93.9 Activity, unspecified; Y92.9 Unspecified place or not applicable; I10 Essential (primary) hypertension; G30.9 Alzheimer's disease, unspecified; F02.80 Dementia in other diseases classified elsewhere, unspecified severity, without behavioral disturbance, psychotic disturbance, mood disturbance, and anxiety
CPT/HCPCS: 70450; 72125; 99284; G0390

== ENCOUNTER 2020-06-11 16:42 | Emergency (ER) | payer OTHER, BC ==
[2020-06-11 17:37] LABS: Absolute Lymphocytes (CBC) 0.6 K/uL (0.7-4.9); Basophils % 0.4 % (0-1.3); Hematocrit 42.1 % (39.6-49.0); Lymphocytes % 5.3 % (15.3-44.8); MPV 9.4 fL (7.6-11.3); RBC Red Blood Cell Count 4.53 M/uL (4.33-5.43)
[2020-06-11 17:38] LABS: Protime INR 0.96
[2020-06-11 18:04] LABS: Barbiturates NEGATIVE (NEGATIVE); Benzodiazepines NEGATIVE (NEGATIVE); Cocaine NEGATIVE (NEGATIVE); METHAMPHETAM NEGATIVE (NEGATIVE); Methadone NEGATIVE (NEGATIVE); Opiates NEGATIVE (NEGATIVE); Phencyclidine NEGATIVE (NEGATIVE); THC Cannibis NEGATIVE (NEGATIVE)
--- NOTE | 2020-06-11 18:04 | RAD REPORT ---
EXAM DESCRIPTION: CT - Head Brain Wo Cont - 06/11/2020 5:55 pm CLINICAL HISTORY: SEIZURE COMPARISON: Head C Spine Mpr Wo Con dated 04/20/2020 TECHNIQUE: Axial 5 mm thick images of the head were obtained without IV contrast. All CT scans are performed using dose optimization technique as appropriate and may include automated exposure control or mA/KV adjustment according to patient size. FINDINGS: No intracranial hemorrhage, mass, edema or shift of mid-line structures. No acute cortical based infarction. No cortical edema or sulcal effacement. The patient's moderate severity atrophy an d chronic ischemic changes are stable. Ventricles remain in proportion to the amount of volume loss. Arterial calcifications are present. The intracranial findings are stable. Mastoid air cells and visualized portions of the paranasal sinuses are clear. No acute bony findings. IMPRESSION: Negative non-contrast CT head examination for acute finding. Atrophy and chronic ischemic changes match the April 20, 2020 study.
[2020-06-11 18:08] LABS: ALT/SGPT 16 U/L (12-78); AST/SGOT 17 U/L (15-37); Albumin 3.6 g/dL (3.4-5.0); Alkaline Phosphatase 65 U/L (45-117); BUN Blood Urea Nitrogen 17 mg/dL (7-18); Bicarbonate 34 mmol/L (21-32); Bilirubin Direct 0.1 mg/dL (0-0.2); Bilirubin Total 0.4 mg/dL (0.2-1.0); Glucose Level 128 mg/dL (74-106); Potassium 3.1 mmol/L (3.5-5.1); Protein, Total 7.5 g/dL (6.4-8.2); Sodium Level 142 mmol/L (136-145)
[2020-06-11 18:25] LABS: Urine Blood NEGATIVE (NEG); Urine Glucose NEGATIVE (NEG); Urine Protein NEGATIVE (NEG); Urine pH 7.5 (5.0-7.0)
[2020-06-11] MEDS ORDERED: POTASSIUM CL SA 10 MEQ TAB PO ONE (19:03)
--- NOTE | 2020-06-11 19:04 | ER ---
Nurse's Notes [facility] Name: Dalton King Age: 75 yrs Sex: Male : 1945 Arrival Date: 06/11/2020 Time: 16:50 Bed 25 Private MD: Diagnosis: Epilepsy and recurrent seizures;Hypokalemia Presentation: 06/11 16:50 Chief complaint: Patient states: Witnessed seizure that lasted a minute or two. Pt does ss not have a hx of seizures. Coronavirus screen: Client denies travel out of the [place] in the last 14 days. Ebola Screen: Patient denies exposure to infectious person. Patient denies travel to an Ebola-affected area in the 21 days before illness onset. Initial Sepsis Screen: Does the patient meet any 2 criteria? No. Patient's initial sepsis screen is negative. Does the patient have a suspected source of infection? No. Patient's initial sepsis screen is negative. Risk Assessment: Do you want to hurt yourself or someone else? Patient reports no desire to harm self or others. Onset of symptoms was June 11, 2020. 16:50 Method Of Arrival: EMS: [facility] 16:50 Acuity: ADRI 3 ss Triage Assessment: 16:55 General: Appears in no apparent distress. uncomfortable, Behavior is calm, cooperative. ec1 Pain: Denies pain. EENT: Eyes with exudate noted from left and right eye. Neuro: Level of Consciousness is awake, alert, obeys commands, Oriented to person, place. Neuro: Seizure activity reported prior to arrival. reported 2 minutes of shaking with eyes rolling back and then approx 3-4 minutes of postictal period. Cardiovascular: Rhythm is regular. Respiratory: Reports cough that is Airway is patent Respiratory effort is even, labored, Respiratory pattern is regular, Breath sounds are coarse bilaterally. Breath sounds with wheezes bilaterally. GI: No signs and/or symptoms were reported involving the gastrointestinal system. : No signs and/or symptoms were reported regarding the genitourinary system. Derm: No signs and/or symptoms reported regarding the dermatologic system. Musculoskeletal: No signs and/or symptoms reported regarding the musculoskeletal system. Historical: - Allergies: 16:53 No Known Allergies; ss - Home Meds: 17:00 abiraterone 250mg Oral 4 tabs once daily [Active]; acetaminophen 650 mg Oral TbER every ec1 6 hours [Active]; amlodipine 10 mg tab 1 tab once daily [Active]; aripiprazole 1 mg/mL Oral soln 7.5 mL once daily [Active]; carvedilol 6.25 mg Oral tab 2 times per day [Active]; cromolyn 4 % ophthalmic drop 1 drop three times a day [Active]; donepezil 10 mg Oral tab 1 tab nightly [Active]; escitalopram oxalate 10 mg Oral tab 1.5 tab once daily [Active]; folic acid 1 mg Oral tab 1 tab once daily [Active]; hydrochlorothiazide 25 mg Oral tab 1 tab once daily [Active]; losartan 50 mg Oral tab 1 tab once daily [Active]; melatonin 3 mg Oral tab 2 tab nightly [Active]; memantine 10 mg Oral tab 1 tab 2 times per day [Active]; Myrbetriq 25 mg Oral Tb24 1 tab once daily [Active]; oxycarbazepime 300 mg 1 tab PO BID [Active]; Oyster Shell Calcium 500 500 mg calcium (1,250 mg) Oral tab twice a day [Active]; potassium chloride 10 mEq Oral TbER 1 tab once daily [Active]; prednisone 5 mg Oral tab 1 tab 2 times per day [Active]; tamsulosin 0.4 mg Oral cp24 1 cap once daily [Active]; trazodone 50 mg Oral tab daily [Active]; Vitamin D3 5,000 unit Oral tab daily [Active]; - PMHx: 16:53 Alzheimer's; Cancer; Dementia; Hypertension; Depression; pseudobulbar effect; Prostate; ss - Immunization history:: Adult Immunizations up to date. - Social history:: Smoking status: Patient denies any tobacco usage or history of. Screenin:58 Abuse screen: Denies threats or abuse. Denies injuries from another. Nutritional ec1 screening: No deficits noted. Tuberculosis screening: No symptoms or risk factors identified. Fall Risk Fall in past 12 months (25 points). Secondary diagnosis (15 points) Alzheimer's, dementia, IV access (20 points). Ambulatory Aid- None/Bed Rest/Nurse Assist (0 pts). Gait- Weak (10 pts.). Mental Status- Overestimates/Forgets Limitations (15 pts.). Assessment: 17:51 Reassessment: Patient appears in no apparent distress at this time. No changes from ec1 previously documented assessment. Patient and/or family updated on plan of care and expected duration. Pain level reassessed. 18:18 Reassessment: Patient appears in no apparent distress at this time. No changes from ec1 previously documented assessment. Patient and/or family updated on plan of care and expected duration. Pain level reassessed. Vital Signs: 16:55 BP 144 / 100; Pulse 71; Resp 18 S; Temp 98.6(O); Pulse Ox 98% on R/A; Weight 81.65 kg ec1 (R); Pain 0/10; 17:15 BP 139 / 73; Pulse 73; Resp 18 S; Pulse Ox 96% on R/A; ec1 18:16 BP 140 / 81; Pulse 73; Resp 18 S; Pulse Ox 96% on R/A; ec1 [place] Coma Score: 16:55 Eye Response: to voice(3). Verbal Response: confused(4). Motor Response: obeys ec1 commands(6). Total: 13. ED Course: 16:50 Patient arrived in ED. ss 16:51 Triage completed. ss 16:53 Arm band placed on right wrist. ss 16:54 Ade Spears, HANNY is Primary Nurse. ec1 16:57 Seizure precautions initiated. Warm blanket given. Verbal reassurance given. Cardiac jp3 monitor on. Pulse ox on. NIBP on. 16:58 Patient has correct armband on for positive identification. Bed in low position. ec1 Seizure precautions initiated. 17:09 Inserted saline lock: 20 gauge in left antecubital area, using aseptic technique. Blood ec1 collected. 17:11 Angel Quinonez PA is PHCP. jmm 17:11 Citlalli Galindo MD is Attending Physician. jmm 17:[address] via stretcher. ec1 17:55 CT Head Brain wo Cont In Process Unspecified. EDMS 18:38 Chest Single View XRAY In Process Unspecified. EDMS 19:03 Daniel White MD is Referral Physician. jmm 19:10 Report given to Dana Coker RN. ec1 19:55 No provider procedures requiring assistance completed. IV discontinued, intact, iw bleeding controlled, No redness/swelling at site. Pressure dressing applied. Administered Medications: 18:51 Drug: Potassium Chloride 40 mEq Route: PO; ec1 19:10 Follow up: Response: No adverse reaction; Adverse reaction, Physician notified ec1 Outcome: 19:03 Discharge ordered by MD. dougherty 19:55 Discharged to home with family. iw 19:55 Condition: good 19:55 Discharge instructions given to family, Instructed on discharge instructions, follow up and referral plans. Demonstrated understanding of instructions, follow-up care. 20:10 Patient left the ED. iw Signatures: Dispatcher [employer] EDAngel Uriarte PA PA jmm Williams, Irene, HANNY GAMINO Adela Prather RN RN Sarbjit Kevin jp3 Ade Spears RN RN ec1 Corrections: (The following items were deleted from the chart) 17:11 16:55 Respiratory: Reports cough that is Airway is patent Respiratory effort is even, ec1 labored, Respiratory pattern is regular, ec1
--- NOTE | 2020-06-11 19:04 | EDPHYS ---
Physician Documentation [facility] Name: Dalton King Age: 75 yrs Sex: Male : 1945 Arrival Date: 06/11/2020 Time: 16:50 Bed 25 Private MD: ED Physician Citlalli Galindo HPI: 06/11 17:14 This 75 yrs old Male presents to ER via EMS with complaints of Seizure. jmm 17:14 The patient presents after having a single isolated seizure. Character of seizure(s): jmm Loss of consciousness: the patient experienced loss of consciousness, Motor activity: generalized, Incontinence:. Seizure onset: today. Seizure Hx: the patient has no previous seizure history. Associated injury: The patient did not suffer any apparent associated injury. Current symptoms: Currently, the patient is not experiencing any symptoms. The patient has not experienced similar symptoms in the past. Historical: - Allergies: 16:53 No Known Allergies; ss - Home Meds: 17:00 abiraterone 250mg Oral 4 tabs once daily [Active]; acetaminophen 650 mg Oral TbER every ec1 6 hours [Active]; amlodipine 10 mg tab 1 tab once daily [Active]; aripiprazole 1 mg/mL Oral soln 7.5 mL once daily [Active]; carvedilol 6.25 mg Oral tab 2 times per day [Active]; cromolyn 4 % ophthalmic drop 1 drop three times a day [Active]; donepezil 10 mg Oral tab 1 tab nightly [Active]; escitalopram oxalate 10 mg Oral tab 1.5 tab once daily [Active]; folic acid 1 mg Oral tab 1 tab once daily [Active]; hydrochlorothiazide 25 mg Oral tab 1 tab once daily [Active]; losartan 50 mg Oral tab 1 tab once daily [Active]; melatonin 3 mg Oral tab 2 tab nightly [Active]; memantine 10 mg Oral tab 1 tab 2 times per day [Active]; Myrbetriq 25 mg Oral Tb24 1 tab once daily [Active]; oxycarbazepime 300 mg 1 tab PO BID [Active]; Oyster Shell Calcium 500 500 mg calcium (1,250 mg) Oral tab twice a day [Active]; potassium chloride 10 mEq Oral TbER 1 tab once daily [Active]; prednisone 5 mg Oral tab 1 tab 2 times per day [Active]; tamsulosin 0.4 mg Oral cp24 1 cap once daily [Active]; trazodone 50 mg Oral tab daily [Active]; Vitamin D3 5,000 unit Oral tab daily [Active]; - PMHx: 16:53 Alzheimer's; Cancer; Dementia; Hypertension; Depression; pseudobulbar effect; Prostate; ss - Immunization history:: Adult Immunizations up to date. - Social history:: Smoking status: Patient denies any tobacco usage or history of. ROS: 17:14 Constitutional: Negative for fever, chills, and weight loss, Cardiovascular: Negative jmm for chest pain, palpitations, and edema, Respiratory: Negative for shortness of breath, cough, wheezing, and pleuritic chest pain. 17:14 Neuro: Positive for seizure activity. 17:14 All other systems are negative. Exam: 17:14 Constitutional: This is a well developed, well nourished patient who is awake, alert, jmm and in no acute distress. Head/Face: atraumatic. ENT: Moist Mucus Membranes 17:14 Chest/axilla: Normal chest wall appearance and motion. Cardiovascular: Regular rate and rhythm. No edema appreciated Respiratory: Normal respirations, no respiratory distress appreciated Abdomen/GI: Non distended, soft Back: Normal ROM Skin: General appearance color normal MS/ Extremity: Moves all extremities, no obvious deformities appreciated, no edema noted to the lower extremities 17:14 Eyes: Conjunctiva: injected, bilaterally. 17:14 Neuro: Orientation: is normal, Mentation: is normal, Memory: is normal. 17:14 Psych: Behavior/mood is pleasant, cooperative. Vital Signs: 16:55 BP 144 / 100; Pulse 71; Resp 18 S; Temp 98.6(O); Pulse Ox 98% on R/A; Weight 81.65 kg ec1 (R); Pain 0/10; 17:15 BP 139 / 73; Pulse 73; Resp 18 S; Pulse Ox 96% on R/A; ec1 18:16 BP 140 / 81; Pulse 73; Resp 18 S; Pulse Ox 96% on R/A; ec1 Henderson Coma Score: 16:55 Eye Response: to voice(3). Verbal Response: confused(4). Motor Response: obeys ec1 commands(6). Total: 13. MDM: 17:14 Patient medically screened. jmm 19:02 Data reviewed: vital signs, nurses notes. Counseling: I had a detailed discussion with [facility] the patient and/or guardian regarding: the historical points, exam findings, and any diagnostic results supporting the discharge/admit diagnosis, lab results, radiology results, the need for outpatient follow up, to return to the emergency department if symptoms worsen or persist or if there are any questions or concerns that arise at home. ED course: Imaging studies negative. Patient is advised to follow up with neuro for further evaluation. patient is otherwise given strict return precautions. patient understood and agrees with the plan of care. . 06/11 17:17 Order name: Acetaminophen; Complete Time: 18:25 [facility] 06/11 17:17 Order name: Basic Metabolic Panel; Complete Time: 18:25 [facility] 06/11 17:17 Order name: CBC with Diff [facility] 06/11 17:17 Order name: ETOH Level; Complete Time: 18:25 [facility] 06/11 17:17 Order name: Hepatic Function; Complete Time: 18:25 [facility] 06/11 17:17 Order name: PT-INR [facility] 06/11 17:17 Order name: Ptt, Activated [facility] 06/11 17:17 Order name: Salicylate; Complete Time: 18:25 [facility] 06/11 17:17 Order name: Urine Drug Screen; Complete Time: 18:06 [facility] 06/11 17:17 Order name: EKG; Complete Time: 17:18 [facility] 06/11 17:17 Order name: EKG - Nurse/Tech; Complete Time: 18:14 [facility] 06/11 17:17 Order name: IV Saline Lock; Complete Time: 17:19 [facility] 06/11 17:17 Order name: Labs collected and sent; Complete Time: 17:45 [facility] 06/11 17:17 Order name: Urine Dipstick-Ancillary (obtain specimen); Complete Time: 18:16 [facility] 06/11 17:17 Order name: CT Head Brain wo Cont; Complete Time: 18:06 [facility] 06/11 17:25 Order name: Glucose, Ancillary Testing; Complete Time: 17:27 EDMO 06/11 17:42 Order name: CBC with Automated Diff; Complete Time: 17:44 EDMO 06/11 17:42 Order name: Protime (+INR); Complete Time: 17:44 EDMO 06/11 17:42 Order name: PTT, Activated Partial Thromb; Complete Time: 17:44 [facility] 06/11 17:51 Order name: Urine Dipstick--Ancillary (enter results) bd 06/11 17:51 Order name: Urine Dipstick-Ancillary; Complete Time: 18:31 [facility] 06/11 18:03 Order name: Chest Single View XRAY; Complete Time: 19:39 [facility] 06/11 19:23 Order name: COVID-19/FLU A+B; Complete Time: 19:24 EDMS Administered Medications: 18:51 Drug: Potassium Chloride 40 mEq Route: PO; ec1 19:10 Follow up: Response: No adverse reaction; Adverse reaction, Physician notified ec1 Disposition: 06/11/20 19:03 Discharged to Home. Impression: Epilepsy and recurrent seizures, Hypokalemia. - Condition is Stable. - Discharge Instructions: Potassium Content of Foods, Seizure, Adult, Hypokalemia. - Medication Reconciliation Form, Thank You Letter, Antibiotic Education, Prescription Opioid Use form. - Follow up: Daniel White MD; When: 2 - 3 days; Reason: Recheck today's complaints, Continuance of care, Re-evaluation by your physician. Addendum: 07/04/2020 02:09 Co-signature as Attending Physician, Citlalli Galindo MD. m a2 Signatures: Dispatcher [employer] [facility] Angel Quinonez PA PA Dana Gonzáles RN RN iw Adela Prather RN RN Citlalli Galindo MD MD [facility] Ade Spears RN RN ec1 Corrections: (The following items were deleted from the chart) 06/11 18:32 18:03 Influenza Screen (A \T\ B)+BA.LAB.BRZ ordered. [facility] 18:32 18:03 CORONAVIRUS+MR.LAB.BRZ ordered. [facility] EDMO 20:10 19:03 06/11/2020 19:03 Discharged to Home. Impression: Epilepsy and recurrent seizures; iw Hypokalemia. Condition is Stable. Forms are Medication Reconciliation Form, Thank You Letter, Antibiotic Education, Prescription Opioid Use. Follow up: Daniel White; When: 2 - 3 days; Reason: Recheck today's complaints, Continuance of care, Re-evaluation by your physician. [email or web address]
[2020-06-11 19:23] LABS: SARS-COV-2 RT PCR NEGATIVE (NEGATIVE)
--- NOTE | 2020-06-11 19:26 | RAD REPORT ---
EXAM DESCRIPTION: RAD - Chest Single View - 06/11/2020 6:38 pm CLINICAL HISTORY: cough, sob COMPARISON: Portable September 2019 TECHNIQUE: AP portable chest image was obtained 06/11/2020 6:38 pm . FINDINGS: Lung volumes are low. Right hemidiaphragm elevation again noted. No acute lung parenchymal process. Interstitial pattern matches comparison. Heart and vasculature are normal. No measurable pl eural effusion and no pneumothorax. No acute bony abnormality seen. No acute aortic findings suspecte d. IMPRESSION: No acute cardiopulmonary process. No significant change from comparison study.
[2020-06-11 20:15] VITALS: TEMP 98.6
[2020-06-11 20:16] VITALS: O2SAT 96
[2020-06-11 20:18] VITALS: BP 140/81
== END 2020-06-11 20:10 | disposition home or self-care (01) ==
LOC: ER 16:42
DX: G40.909 Epilepsy, unspecified, not intractable, without status epilepticus (principal); E87.6 Hypokalemia; G30.9 Alzheimer's disease, unspecified; F02.80 Dementia in other diseases classified elsewhere, unspecified severity, without behavioral disturbance, psychotic disturbance, mood disturbance, and anxiety; I10 Essential (primary) hypertension; F32.9 Major depressive disorder, single episode, unspecified; Z20.822 Contact with and (suspected) exposure to COVID-19
CPT/HCPCS: 85025; 80048; 36415; 80320; 80329 ×2; 85610; 82947; 80076; 80307 ×8; 85730; 81003; 0240U; 70450; 71045; 99285

== ENCOUNTER 2020-07-06 03:00 | Inpatient (IN) | payer OTHER, BC ==
--- OUTSIDE RECORDS SUMMARY | 2020-07-06 03:04 | XMS REPORT | Continuity of Care Document ---
:1945 Author Organization [facility] t Address [address] [place] [address] Care Team Providers Name Role Phone DR [...] Department ID 2020-03-12 2020-03-28 Inpatient E YULIYA AGUSTIN [facility] [id number] [facility] 13:02:00 12:45:00 [facility] Results Test Description Test Time Test Comments [...] the FDA and the [employer] of the [place] [employer] (CAP) are more stringent than those required for this test. Therefore, the result should be interpreted with caution and close attention to other clinical and epidemiological data BASIC METABOLIC [id number] 08:41:00 Test Item Value Reference Range Interpretation [...] = 8.8 mg/dL 8.3-9.5 09D) BASIC METABOLIC [id number] 09:24:00 Test Item Value Reference Range Interpretation [...] = 9.1 mg/dL 8.3-9.5 09D) BASIC METABOLIC [id number] 14:15:00 Test Item Value Reference Range Interpretation [...] = 9.0 mg/dL 8.3-9.5 09D) BASIC METABOLIC [id number] 07:53:00 Test Item Value Reference Range Interpretation [...] = 9.3 mg/dL 8.3-9.5 09D) BASIC METABOLIC [id number] 13:30:00 Test Item Value Reference Range Interpretation [...] = 9.3 mg/dL 8.3-9.5 09D) BASIC METABOLIC [id number] 11:12:00 Test Item Value Reference Range Interpretation [...] (test code = 8.7 mg/dL 8.3-9.5 09D) [id number] 06:54:00 Test Item Value Reference Range Interpretation Comments FOLATE (test code = A75) 50.5 ng/mL 3.1-17.5 H THYROID PANEL/SCREEN (TSH)2020-03-13 06:46:00 Test Item Value Reference Range Interpretation Comments TSH (test code = A57) 1.390 uIU/mL 0.358-3.740 B12 [id number] 06:35:00 Test Item Value Reference Range Interpretation Comments VIT B12 (test code = A60) 203.0 pg/mL 180.0-914.0 [id number] 06:35:00 Test Item Value Reference Range Interpretation Comments PREALBUMIN (test code = 08E) 21 mg/dL 18-38 [id number] 06:15:00 Test Item Value Reference Range Interpretation Comments Hb A1C % (test code 5.8 % 3.8-6.4 = HBA) A1C % (test code = HbA1c (% ) A1C) Reference Range Normal <5.7 Prediabetes 5.7-6.4 Diabetic >=6.5 LIPID [id number] 06:11:00 Test Item Value Reference Range Interpretation Comments CHOLESTROL (test code = 44A) 188 mg/dL 140-200 TRIGLYCERI (test code = 42B) 173 mg/dL <=149 H HDL (test code = 83D) 44.0 mg/dL 40.0-60.0 LDL (test code = 34B) 114 mg/dL <=99 H CHL/HDL (test code = CHR) 4.3 0.0-3.4 H [id number] 21:57:00 Test Item Value Reference Range Interpretation Comments MAGNESIUM (test code = 48A) 2.3 mg/dL 1.8-2.4 [id number] 16:04:00 Test Item Value Reference Range Interpretation [...] code = LEUK) NEGATIVE NEGATIVE DRUGS OF [id number] 16:00:00 Test Item Value Reference Range Interpretation [...] Barbiturates 200 ng/mL Opiates 2000 ng/mL LIVER [id number] 14:46:00 Test Item Value Reference Range Interpretation [...] (test code = <10 mg/dL <=10 56A) [id number] 14:36:00 Test Item Value Reference Range Interpretation Comments ACETAMINPH (test code = 94M) <2.0 ug/mL 10.0-30.0 L [id number] 14:36:00 Test Item Value Reference Range Interpretation Comments CPK (test code = 32A) 56 IU/L 39-308 [id number] 14:35:00 Test Item Value Reference Range Interpretation Comments FERRITIN (test code = A19) 165.6 ng/mL 26.0-388.0 LDH-LACTIC [id number] 14:35:00 Test Item Value Reference Range Interpretation Comments LDH (test code = 33A) 186 IU/L 87-241 CARDIAC [id number] 14:20:00 Test Item Value Reference Range Interpretation Comments TROPONIN I (test code = A84) <0.015 ng/mL 0.000-0.045 C-REACTIVE PROTEIN [id number] 14:20:00 Test Item Value Reference Range Interpretation Comments CRP QUANT (test code <2.9 mg/L 0.0-2.9 = CRPQ) Method Change (test Please note the code = METHOD) change in Method and the reference range BASIC METABOLIC [id number] 14:18:00 Test Item Value Reference Range Interpretation [...] code = 9.1 mg/dL 8.3-9.5 09D) AMMONIA [id number] 14:14:00 Test Item Value Reference Range Interpretation Comments AMMONIA (test code = 54A) 29 umol/L 11-32 [id number] 14:14:00 Test Item Value Reference Range Interpretation [...] the FDA and the [employer] of the [place] [employer] (CAP) are more stringent than those required for this test. Therefore, the result should be interpreted with caution and close attention to other clinical and epidemiological data [id number] 13:55:00 Test Item Value Reference Range Interpretation [...]
[2020-07-06] MEDS ORDERED: NA CHLORIDE 0.9% 2,000 ML ONE (03:37)
[2020-07-06 03:55] LABS: Absolute Lymphocytes (CBC) 0.7 K/uL (0.7-4.9); Basophils % 0.4 % (0-1.3); Hematocrit 41.6 % (39.6-49.0); MPV 9.2 fL (7.6-11.3)
[2020-07-06 04:08] LABS: Protime INR 1.19
[2020-07-06 04:17] LABS: Albumin 2.6 g/dL (3.4-5.0); Bilirubin Direct 0.1 mg/dL (0-0.2); Bilirubin Total 0.6 mg/dL (0.2-1.0); Protein, Total 6.6 g/dL (6.4-8.2); Troponin (Emerg Dept Use Only) 0.02 ng/mL (0.0-0.045)
--- NOTE | 2020-07-06 04:52 | EDPHYS ---
Physician Documentation [facility] Name: Dalton King Age: 75 yrs Sex: Male : 1945 Arrival Date: 07/06/2020 Time: 03:02 Bed 17 Private MD: ED Physician Chavez Seaman HPI: 07/06 03:25 This 75 yrs old Male presents to ER via EMS with complaints of low oxygen. rn 03:25 Onset: The symptoms/episode began/occurred at an unknown time. Duration: The symptoms rn unknown. The patient's shortness of breath has no apparent modifying factors. Associated signs and symptoms: Pertinent positives: non-productive cough, Pertinent negatives: chest pain, fever, hemoptysis. Severity of symptoms: At their worst the symptoms were mild in the emergency department the symptoms are unchanged. It is unknown whether or not the patient has had similar symptoms in the past. Per EMS, residential reported low oxygen to 88%, unknown onset, + cough, + depressed LOC, talking to EMS and responsive to painful stimuli. Attempted to give him oral tylenol but did not drink it. Pt states "hurts all over". . Historical: - Allergies: 03:25 No Known Allergies; bb - Immunization history:: Adult Immunizations unknown. - Social history:: Smoking status: unknown. - Family history:: not pertinent. - Hospitalizations: : No recent hospitalization is reported. ROS: 03:25 Constitutional: + fever Eyes: Negative for injury, pain, redness, and discharge, Neck: rn Negative for injury, pain, and swelling, Cardiovascular: Negative for chest pain, palpitations, and edema, Respiratory: + cough Abdomen/GI: Negative for abdominal pain, nausea, vomiting, diarrhea, and constipation, Back: Negative for injury and pain, MS/Extremity: Negative for injury and deformity, Skin: Negative for injury, rash, and discoloration, Neuro: Negative for headache, numbness, tingling, and seizure. Exam: 03:25 Constitutional: This is a well developed, well nourished patient who is somnolent, rn awkens with tactile stimuli, answers some questions Head/Face: Normocephalic, atraumatic. ENT: dry MM Cardiovascular: Regular rate and rhythm. No pulse deficits. Respiratory: Mild tachypnea, diminished at bases Abdomen/GI: soft, non-tender Skin: Warm, dry, no cellulitis MS/ Extremity: Pulses equal, no cyanosis. Neuro: Somnolent, oriented to person, and situation. 4/5 strength throughout with withdrawal from painful stimuli Vital Signs: 03:02 BP 149 / 103; Pulse 92; Resp 22 S; Temp 100(A); Pulse Ox 98% on 15% Non-rebreather bb mask; Weight 86.18 kg (R); Height 5 ft. 8 in. (172.72 cm) (R); 04:30 BP 132 / 88; Pulse 80; Resp 22; Pulse Ox 94% on 4 lpm NC; jb4 05:45 BP 128 / 81; Pulse 80; Resp 20; Pulse Ox 95% on 4 lpm NC; jb4 03:02 Body Mass Index 28.89 (86.18 kg, 172.72 cm) bb MDM: 03:03 Patient medically screened. rn 04:49 Differential diagnosis: Bronchitis Myocardial Infarction pneumonia, Pneumothorax rn pulmonary edema, Sepsis. Data reviewed: vital signs, nurses notes, lab test result(s), EKG, radiologic studies, CT scan, plain films, and as a result, I will admit patient. Counseling: I had a detailed discussion with the patient and/or guardian regarding: the historical points, exam findings, and any diagnostic results supporting the discharge/admit diagnosis, lab results, radiology results, the need for further work-up and treatment in the hospital. Response to treatment: the patient's symptoms have mildly improved after treatment, and as a result, I will admit patient. Admission orders: after a detailed discussion of the patient's condition and case, the admit orders are written by me. ED course: Pt with right lung opacity, given fever/hypoxia likely pneumonia, COVID pending, abx administered, total of 2L fluids given, 1 L by EMS, admitted to hospitalist service.. 07/06 03:09 Order name: Urine Culture rn 07/06 03:09 Order name: Basic Metabolic Panel rn 07/06 03:09 Order name: Blood Culture Adult (2) rn 07/06 03:09 Order name: CBC with Diff rn 07/06 03:09 Order name: Lactate rn 07/06 03:09 Order name: LFT's rn 07/06 03:09 Order name: Lipase rn 07/06 03:09 Order name: Procalcitonin rn 07/06 03:09 Order name: Protime (+inr) rn 07/06 03:09 Order name: Ptt, Activated rn 07/06 03:09 Order name: Troponin (emerg Dept Use Only); Complete Time: 04:18 rn 07/06 03:09 Order name: Urine Microscopic Only rn 07/06 03:10 Order name: Urine Culture EDMS 07/06 03:10 Order name: Basic Metabolic Panel; Complete Time: 04:18 EDMS 07/06 03:10 Order name: Blood Culture EDMS 07/06 03:10 Order name: CBC with Automated Diff; Complete Time: 04:18 EDMS 07/06 03:10 Order name: Lactate; Complete Time: 04:48 EDMS 07/06 03:10 Order name: Liver (Hepatic) Function; Complete Time: 04:18 EDMS 07/06 03:10 Order name: Lipase; Complete Time: 04:18 EDMS 07/06 03:10 Order name: Procalcitonin; Complete Time: 04:48 EDMS 07/06 03:10 Order name: Protime (+INR); Complete Time: 04:18 EDMS 07/06 03:10 Order name: PTT, Activated Partial Thromb; Complete Time: 04:18 EDMS 07/06 04:19 Order name: BNP; Complete Time: 04:48 [facility] 07/06 05:14 Order name: COVID-19/FLU A+B [facility]CO 07/06 05:56 Order name: Urine Dipstick--Ancillary (enter results) [facility] 07/06 06:53 Order name: C-Reactive Protein [facility]CO 07/06 06:53 Order name: ABG Arterial Blood Gas [facility]CO 07/06 06:53 Order name: CBC with Automated Diff EDMS 07/06 03:09 Order name: Cath; Complete Time: 05:04 rn 07/06 03:09 Order name: Chest Single View XRAY rn 07/06 03:09 Order name: Accucheck; Complete Time: 05:04 rn 07/06 03:09 Order name: Cardiac monitoring; Complete Time: 03:17 rn 07/06 03:09 Order name: EKG - Nurse/Tech; Complete Time: 03:49 rn 07/06 03:09 Order name: IV Saline Lock - Large Bore; Complete Time: 03:49 rn 07/06 03:09 Order name: Labs collected and sent; Complete Time: 03:49 rn 07/06 03:09 Order name: O2 Per Protocol; Complete Time: 03:49 rn 07/06 03:09 Order name: O2 Sat Monitoring; Complete Time: 03:49 rn 07/06 03:09 Order name: Urine Dipstick-Ancillary (obtain specimen); Complete Time: 05:52 rn 07/06 03:24 Order name: CT Head Brain wo Cont rn 07/06 06:06 Order name: CONS Physician Consult EDMS 07/06 06:53 Order name: CBC with Automated Diff EDMS 07/06 06:53 Order name: Comprehensive Metabolic Panel EDMS 07/06 06:53 Order name: Comprehensive Metabolic Panel EDMS 07/06 06:53 Order name: Sputum Culture EDMS 07/06 06:53 Order name: NPO EDMS 07/06 06:53 Order name: Speech Therapy Consult EDMS Administered Medications: 03:49 Drug: NS 0.9% 1000 ml Route: IV; Rate: 1000 ml; Site: right wrist; jb4 04:45 Follow up: Response: No adverse reaction; IV Status: Completed infusion; IV Intake: jb4 1000ml 04:46 Drug: Rocephin - (cefTRIAXone) 1 grams {Note: Given IVP per pharmacy protocol per jb4 providers instructions..} Route: IVPB; Infused Over: 30 mins; Site: right wrist; 04:49 Follow up: Response: No adverse reaction; IV Status: Completed infusion; IV Intake: [id number] 05:00 Drug: Zithromax (azithromycin) 500 mg Route: IVPB; Infused Over: 1 hrs; Site: right [facility] wrist; 05:23 Not Given (Physician Discretion): NS 0.9% 1000 ml IV at 1000 ml once jb4 Disposition: 07/06/20 04:52 Hospitalization ordered by Citlalli Waller for Inpatient Admission. Preliminary diagnosis are Pneumonia, unspecified organism, Altered mental status, unspecified, Hypoxemia. - Bed requested for Telemetry/MedSurg (Inpatient). - Status is Inpatient Admission. bd - Condition is Stable. - Problem is new. - Symptoms have improved. Signatures: Dispatcher [employer] EDCO Huong Riley Martha, RN RN mw Woody, Diana, RN RN dw Ballard, Brenda, RN RN Chavez Dixon MD MD rn Bryson, James, HANNY RN jb4 Corrections: (The following items were deleted from the chart) 04:31 03:11 CORONAVIRUS+MR.LAB.BRZ ordered. [facility] EDCO 04:31 03:11 Influenza Screen (A \\T\\ B)+BA.LAB.BRZ ordered. [facility] EDCO 05:16 04:52 Hospitalization Ordered by Citlalli Waller MD for Inpatient Admission. Preliminary diagnosis is Pneumonia, unspecified organism; Altered mental status, unspecified; Hypoxemia. Bed requested for Telemetry/MedSurg (Inpatient). Status is Inpatient Admission. Condition is Stable. Problem is new. Symptoms have improved. rn 06:53 03:11 UA MICROSCOPIC+U.LAB.BRZ ordered. [facility] EDCO 16:23 05:16 07/06/2020 04:52 Hospitalization Ordered by Citlalli Waller MD for Inpatient dw Admission. Preliminary diagnosis is Pneumonia, unspecified organism; Altered mental status, unspecified; Hypoxemia. Bed requested for [facility] ER HOLD. Status is Inpatient Admission. Condition is Stable. Problem is new. Symptoms have improved. mw 18:08 16:23 07/06/2020 04:52 Hospitalization Ordered by Citlalli Waller MD for Inpatient bd Admission. Preliminary diagnosis is Pneumonia, unspecified organism; Altered mental status, unspecified; Hypoxemia. Bed requested for Telemetry/MedSurg (Inpatient). Status is Inpatient Admission. Condition is Stable. Problem is new. Symptoms have improved.
--- NOTE | 2020-07-06 04:52 | ER ---
Nurse's Notes [facility] Name: Dalton King Age: 75 yrs Sex: Male : 1945 Arrival Date: 07/06/2020 Time: 03:02 Bed 17 Private MD: Diagnosis: Pneumonia, unspecified organism;Altered mental status, unspecified;Hypoxemia Presentation: 07/06 03:02 Chief complaint: EMS states: they were toned out for report of pt hypoxic. Coronavirus bb screen: difficulty breathing, Client presents with at least one sign or symptom that may indicate coronavirus-19. Standard/surgical mask placed on the client. Ebola Screen: No symptoms or risks identified at this time. Initial Sepsis Screen: Does the patient meet any 2 criteria? RR > 20 per min. HR > 90 bpm. Yes Does the patient have a suspected source of infection? Yes: Productive cough/pneumonia Risk Assessment: Do you want to hurt yourself or someone else? Unable to obtain. Onset of symptoms was July 05, 2020. Care prior to arrival: Medication(s) given: Tylenol, 1000 mg, IV initiated. 18 GA, in the right antecubital area, Glucose check: 191 Oxygen administered. via a non-rebreather mask. 03:02 Method Of Arrival: EMS: [facility] bb 03:02 Acuity: ADRI 2 bb Historical: - Allergies: 03:25 No Known Allergies; bb - Immunization history:: Adult Immunizations unknown. - Social history:: Smoking status: unknown. - Family history:: not pertinent. - Hospitalizations: : No recent hospitalization is reported. Screenin:30 Abuse screen: Denies threats or abuse. Nutritional screening: No deficits noted. jb4 Tuberculosis screening: No symptoms or risk factors identified. Assessment: 03:05 General: Appears in no apparent distress. uncomfortable, Behavior is calm, drowsy. jb4 Pain: Unable to use pain scale. FLACC scale score is 0 out of 10. Neuro: Level of Consciousness is confused, lethargic, Oriented to person. Cardiovascular: Patient's skin is warm and dry. Respiratory: Airway is patent Respiratory effort is even, unlabored, Respiratory pattern is regular, symmetrical. GI: No signs and/or symptoms were reported involving the gastrointestinal system. : No signs and/or symptoms were reported regarding the genitourinary system. EENT: No signs and/or symptoms were reported regarding the EENT system. Derm: Skin is intact, Skin is pink, warm \T\ dry. Musculoskeletal: Circulation, motion, and sensation intact. 04:00 Reassessment: Patient appears in no apparent distress at this time. No changes from jb4 previously documented assessment. Patient and/or family updated on plan of care and expected duration. Pain level reassessed. 05:00 Reassessment: PT remains Lethargic, confused and oriented to self. Awakens to verbal jb4 stimuli. Pt remains on 4L NC, with even and unlabored respirations. 05:57 Reassessment: Patient appears in no apparent distress at this time. No changes from jb4 previously documented assessment. Patient and/or family updated on plan of care and expected duration. Pain level reassessed. Vital Signs: 03:02 BP 149 / 103; Pulse 92; Resp 22 S; Temp 100(A); Pulse Ox 98% on 15% Non-rebreather bb mask; Weight 86.18 kg (R); Height 5 ft. 8 in. (172.72 cm) (R); 04:30 BP 132 / 88; Pulse 80; Resp 22; Pulse Ox 94% on 4 lpm NC; jb4 05:45 BP 128 / 81; Pulse 80; Resp 20; Pulse Ox 95% on 4 lpm NC; jb4 03:02 Body Mass Index 28.89 (86.18 kg, 172.72 cm) bb ED Course: 03:02 Patient arrived in ED. cl3 03:03 Chavez Seaman MD is Attending Physician. rn 03:15 Zay Bah RN is Primary Nurse. jb4 03:24 Triage completed. bb 03:24 Chest Single View XRAY In Process Unspecified. EDMS 03:25 Arm band placed on Patient placed in an exam room, on a stretcher, on front desk monitor, bb on pulse oximetry. 03:30 Patient has correct armband on for positive identification. Bed in low position. Call jb4 light in reach. Side rails up X 1. secured entrance monitor on. Pulse ox on. NIBP on. 03:30 Initial lab(s) drawn, by me, sent to lab. First set of blood cultures drawn. Inserted jb4 saline lock: 18 gauge 24 gauge wrist, using aseptic technique. Blood collected. 03:45 Second set of blood cultures drawn by me. jb4 04:13 CT Head Brain wo Cont In Process Unspecified. EDMS 04:51 Citlalli Waller MD is Hospitalizing Provider. rn 05:27 No provider procedures requiring assistance completed. Patient admitted, IV remains in jb4 place. 07:32 Primary Nurse role handed off by Zay Bah, HANNY 09:59 Irina White, RN is Primary Nurse. bw Administered Medications: 03:49 Drug: NS 0.9% 1000 ml Route: IV; Rate: 1000 ml; Site: right wrist; jb4 04:45 Follow up: Response: No adverse reaction; IV Status: Completed infusion; IV Intake: jb4 1000ml 04:46 Drug: Rocephin - (cefTRIAXone) 1 grams {Note: Given IVP per pharmacy protocol per jb4 providers instructions..} Route: IVPB; Infused Over: 30 mins; Site: right wrist; 04:49 Follow up: Response: No adverse reaction; IV Status: Completed infusion; IV Intake: [id number] 05:00 Drug: Zithromax (azithromycin) 500 mg Route: IVPB; Infused Over: 1 hrs; Site: right jb4 wrist; 05:23 Not Given (Physician Discretion): NS 0.9% 1000 ml IV at 1000 ml once jb4 Intake: 04:45 IV: 1000ml; Total: 1000ml. jb4 04:49 IV: 10ml; Total: 1010ml. jb4 Outcome: 04:52 Decision to Hospitalize by Provider. rn 05:27 Admitted to ER Hold. Please see [facility] for further documentation. jb4 05:27 Condition: stable 18:08 Patient left the ED. bd Signatures: Dispatcher [employer] EDMS Huong Riley Brenda RN RN Chavez Dixon MD MD rn Bryson, James, RN RN jb4 Lewis, Charde [facility] Irina White, HANNY GAMINO
[2020-07-06] MEDS ORDERED: CEFTRIAXONE/SWI 1gm 1 GM/10 ML SYR ONE (04:55)
[2020-07-06] MEDS ORDERED: NA CHLORIDE 0.9% 250 ML ONE ×2 (04:55→19:20)
[2020-07-06] MEDS ORDERED: AZITHROMYCIN 500 MG INJ IVPB ONE (04:55)
[2020-07-06 05:14] LABS: SARS-COV-2 RT PCR NEGATIVE (NEGATIVE)
--- NOTE | 2020-07-06 05:52 | P.HP ---
Certification for Inpatient Patient admitted to: Inpatient With expected LOS: >2 Midnights Patient will require the following post-hospital care: None Practitioner: I am a practitioner with admitting privileges, knowledge of patient current condition, hospital course, and medical plan of care. Services: Services provided to patient in accordance with Admission requirements found in Title 42 Section 412.3 of the Code of Federal Regulations <Matt Mckeon - Last Filed: 07/06/20 06:17> Patient History Date of Service: 07/06/20 Reason for admission: pneumonia History of Present Illness: Mr. King is a 75 yo male with HTN, prostate cancer, Alzheimer's brought in by EMS from intermediate. Patient is AOx1 and unable to provide history so information obtained from EMS. Patient does awaken to voice and responds, but responses are incoherent. Brought in for low oxygen saturation to 88%. Patient with SOB, nonproductive cough, depressed LOC. Denies pain. COVID negative. WBC 11.8. CXR shows linear opacity in right lung base and mild pulmonary vascular congestion with interstitial edema. Na 150, K 3, Cl 111. BUN 29, GFR 55. Glu 184. BNP 619. Procal 0.13. - Past Medical/Surgical History -: prostate cancer -: depression -: essential tremor -: Alzheimer's -: HTN -: psuedobulbar affect Past Surgical History: Unable to obtain - Social History Smoking Status: Unknown if ever smoked [facility] <Matt Mckeon - Last Filed: 07/06/20 06:17> Date of Service: 07/06/20 <jackeline hahn - Last Filed: 07/06/20 13:27> Allergies No Known Allergies Allergy (Unverified 07/06/20 06:16) Review of Systems General: Fever Respiratory: Cough, Shortness of Breath Neurological: Confusion <Matt Mckeon Caryn - Last Filed: 07/06/20 06:17> Physical Examination - Vital Signs Temperature: 100 F Blood Pressure: 149/103 Pulse: 92 Respirations: 22 Pulse Ox (%): 98 (NRB) - Physical Exam General: Oriented x1, Cooperative, Demented HEENT: Atraumatic, Normocephalic, Mucous membr. moist/pink, Sclerae nonicteric Neck: Supple, 2+ carotid pulse no bruit Respiratory: Diminished Cardiovascular: Normal pulses, Regular rate/rhythm, Normal S1 S2, No gallops, No rubs, No murmurs Capillary refill: <2 Seconds Gastrointestinal: Normal bowel sounds, Soft and benign, Non-distended, No ascites, No tenderness, No masses, No rebound, No guarding Musculoskeletal: No clubbing, No swelling, No contractures, No erythema, No tenderness, No warmth Integumentary: No rashes, No breakdown, No significant lesion, No tenderness/swelling, No erythema, No warmth, No cyanosis Neurological: Sensation intact, Abnormal speech, Abnormal affect, Dementia Lymphatics: No axilla or inguinal lymphadenopathy - Studies Laboratory Data (last 24 hrs) 07/06/20 03:30: PT 13.7 H, INR 1.19, APTT 30.2 07/06/20 03:30: WBC 11.80 H D, Hgb 13.5 L, Hct 41.6, Plt Count 307 07/06/20 03:30: Sodium 150 H, Potassium 3.0 L, BUN 29 H, Creatinine 1.28, Glucose 184 H, Total Bilirubin 0.6, AST 19, ALT 10 L, Alkaline Phosphatase 68, Lipase 129 <Matt Mckeon - Last Filed: 07/06/20 06:17> - Studies Laboratory Data (last 24 hrs) 07/06/20 03:30: PT 13.7 H, INR 1.19, APTT 30.2 07/06/20 03:30: WBC 11.80 H D, Hgb 13.5 L, Hct 41.6, Plt Count 307 07/06/20 03:30: Sodium 150 H, Potassium 3.0 L, BUN 29 H, Creatinine 1.28, Glucose 184 H, Total Bilirubin 0.6, AST 19, ALT 10 L, Alkaline Phosphatase 68, Lipase 129 <jackeline ahhn - Last Filed: 07/06/20 13:27> Assessment and Plan - Plan Assessment #community acquired pneumonia #prostate cancer #depression #psuedobulbar affect #essential tremor #Alzheimer's disease #essential hypertension Plan #CAP - covid negative, temp 100, WBC 11.8, procal 0.13 - CXR linear opacity in the right lung base - pulm consulted - zosyn started - ABG pending, CRP pending - speech consult ordered for diet recommendations - breathing treatments q6hr #prostate cancer - continue with home medications #depression - continue with home medications #psuedobulbar affect - continue with home medications #essential tremor - continue with home medications #Alzheimer's disease - continue with home medications #essential hypertension - continue with home medications [facility] Plan: [facility] Plan to discharge in: 48 Hours - Advance Directives Does patient have a Living Will: No Does patient have a Durable POA for Healthcare: No - Code Status/Comfort Care Code Status Assessed: Yes Code Status: Full Code Critical Care: No Time Spent Managing Pts Care (In Minutes): 70 <Matt Mckeon - Last Filed: 07/06/20 06:17> Physician Review: Patient Assessed, Agree with Above Assessment and Plan Physician Review Additional Text: Acute respiratory failure with hypoxia. Pneumonia Hypernatremia Dementia. Plan: IV Zosyn IV fluid for dehydration. Speech therapy consult. Pulmonary consult. <jackeline hahn - Last Filed: 07/06/20 13:27>
[2020-07-06 06:02] LABS: Urine Blood NEGATIVE (NEG); Urine Glucose NEGATIVE (NEG); Urine Protein TRACE (NEG); Urine Specific Gravity 1.025 (1.005-1.030); Urine pH 5.5 (5.0-7.0)
[2020-07-06] MEDS ORDERED: ACETAMINOPHEN 500 MG TAB PO PRN (06:52)
[2020-07-06] MEDS ORDERED: ONDANSETRON 4 MG/2 ML VIAL IV PRN (06:52)
[2020-07-06 07:26] LABS: Arterial Blood Carboxyhemoglob 1.1 % (0-1.5); Blood Gas Oxyhemoglobin 93.6 % (94-97); Blood O2 Saturation 95.7 % (92-98.5)
[2020-07-06] MEDS: ALBUTEROL 2.5 MG/3 ML NEB SOL NEB SCH ×4 (08:00→19:45)
[2020-07-06 08:18] VITALS: BMI 26.6
[2020-07-06] MEDS ORDERED: ALBUTEROL 2.5 MG/3 ML NEB SOL ONE ×2 (08:45→13:04)
[2020-07-06] MEDS: ENOXAPARIN 40 MG/0.4 ML SQ SCH (08:49)
[2020-07-06] MEDS: PIPER/TAZO/NS 3.375gm 3.375 GM/100 ML BAG IVPB SCH ×2 (08:50→17:00)
[2020-07-06 09:06] LABS: Urine Bacteria <20 /HPF (NONE SEEN)
[2020-07-06 09:07] LABS: Urine Amorphous Sediment 2+ /HPF (NONE SEEN); Urine Mucus MOD /HPF (NONE SEEN)
[2020-07-06] MEDS ORDERED: D5W 1,000 ML IV SCH (11:00)
[2020-07-06] MEDS ORDERED: D5W 1,000 ML IV ONE (11:26)
--- NOTE | 2020-07-06 13:33 | P.PN ---
Date of Service: 07/06/20 Patient is confused. Low-grade fever. He is tolerating 4 L oxygen by nasal cannula. Plan: IV Zosyn D5 water to treat hypernatremia. Pulmonary input appreciated. Optimize electrolytes.
[2020-07-06] MEDS: D5W 1,000 ML with POTASSIUM CL 20 MEQ IV SCH ×2 (14:00)
[2020-07-06] MEDS ORDERED: PIPERACIL/TAZO 3.375 GM VIAL IV ONE (18:47)
[2020-07-06] MEDS ORDERED: PIPER/TAZO/NS 3.375gm 3.375 GM/100 ML BAG ONE (23:07)
[2020-07-07] MEDS: PIPER/TAZO/NS 3.375gm 3.375 GM/100 ML BAG IVPB SCH ×3 (01:00→17:00)
[2020-07-07] MEDS: D5W 1,000 ML with POTASSIUM CL 20 MEQ IV SCH ×6 (03:28→23:00)
[2020-07-07] MEDS: ALBUTEROL 2.5 MG/3 ML NEB SOL NEB SCH ×5 (04:00→16:00)
[2020-07-07 05:53] LABS: Absolute Lymphocytes (CBC) 0.7 K/uL (0.7-4.9); Basophils % 0.1 % (0-1.3); Hematocrit 37.4 % (39.6-49.0); Lymphocytes % 5.3 % (15.3-44.8); MPV 9.5 fL (7.6-11.3); RBC Red Blood Cell Count 3.94 M/uL (4.33-5.43)
[2020-07-07 06:16] LABS: Albumin 2.4 g/dL (3.4-5.0); Bilirubin Total 0.3 mg/dL (0.2-1.0); Magnesium 2.4 mg/dL (1.8-2.4); Phosphorus 2.7 mg/dL (2.5-4.9); Potassium 3.2 mmol/L (3.5-5.1)
[2020-07-07] MEDS ORDERED: AZITHROMYCIN IV 500 MG in NA CHLORIDE 0.9% 250 ML IVPB SCH (09:00)
[2020-07-07] MEDS ORDERED: CEFTRIAXONE 1 GM/NS 50 ML 1 GM/50 ML BAG IV SCH (09:00)
[2020-07-07 09:01] LABS: Blood Morphology Comment NOT SEEN (NOT SEEN); Platelet Estimate ADEQ; White Blood Cell Scan OK (OK)
[2020-07-07] MEDS: ENOXAPARIN 40 MG/0.4 ML SQ SCH (10:22)
[2020-07-07] MEDS ORDERED: KCL 20 MEQ/100 mL IVPB 20 MEQ/100 ML BAG IV SCH (11:00)
--- NOTE | 2020-07-07 12:22 | RAD REPORT ---
EXAM DESCRIPTION: RAD - Chest Single View - 07/07/2020 12:16 pm CLINICAL HISTORY: Hypoxia, Pneumonia COMPARISON: July 06 TECHNIQUE: AP portable chest image was obtained 07/07/2020 12:16 pm . FINDINGS: Lung volumes are very low, reduced further from the July 06 study. Scarring or linear ate lectasis of the right base unchanged. Interstitial markings are slightly more pronounced in the media l left base. Overall, lung parenchyma is not felt to be substantially different. No pulmonary edema s een. Trachea is midline. Heart and vasculature are normal. No measurable pleural effusion and no pneu mothorax. No acute bony abnormality seen. No acute aortic findings suspected. IMPRESSION: Limited shallow inspiration portable exam not substantially different from July 06 imag ing.
--- NOTE | 2020-07-07 13:12 | P.PN ---
Subjective Date of Service: 07/07/20 Chief Complaint: pneumonia No major changes from yesterday. Patient remain awake but confused. No fever, not dyspneic. He still hypernatremic Physical Examination - Vital Signs Temperature: 97.5 F Blood Pressure: 115/74 Pulse: 73 Respirations: 20 Pulse Ox (%): 96 - Physical Exam General: In no apparent distress, Confused, Other (Awake) HEENT: Mucous membr. moist/pink Neck: Supple, JVD not distended Respiratory: Clear to auscultation bilaterally, Normal air movement Cardiovascular: No edema, Regular rate/rhythm, Normal S1 S2 Gastrointestinal: Soft and benign, Non-distended, No tenderness Musculoskeletal: No swelling, No tenderness Integumentary: No erythema Neurological: Other (No focal motor deficit, resting tremor right upper extremity.), Dementia Assessment And Plan - Current Problems (Diagnosis) (1) Acute metabolic encephalopathy Current Visit: Yes Status: Acute (2) Hypernatremia Current Visit: Yes Status: Acute (3) Acute respiratory failure with hypoxia Current Visit: Yes Status: Acute (4) Dementia Current Visit: Yes Status: Acute - Plan Chest x-ray demonstrated atelectasis and no gross pneumonia. It also showed mild interstitial edema. Patient still hypernatremic with sodium of 150. Pulmonary input appreciated. Continue antibiotics. Speech therapy consult for swallow evaluation. IV D5W to treat hypernatremia. Monitor BMP. Because of hypoxemia is unclear. Recent echocardiogram is unremarkable. Bronchodilators. Weaned off oxygen as tolerated. Physician Review: Patient Assessed, Agree with Above Assessment and Plan Physician Review Additional Text: Acute respiratory failure with hypoxia. Pneumonia Hypernatremia Dementia. Plan: IV Zosyn IV fluid for dehydration. Speech therapy consult. Pulmonary consult.
--- NOTE | 2020-07-07 14:36 | RAD REPORT ---
EXAM DESCRIPTION: CT - Thorax Wo Con - 07/07/2020 2:14 pm CLINICAL HISTORY: Hypoxia, possible aspiration COMPARISON: July 07, 2020 x-ray and 2019 CT chest TECHNIQUE: Computed axial tomography of the chest was obtained. Contrast was not requested. All CT scans are performed using dose optimization technique as appropriate and may include automated exposure control or mA/KV adjustment according to patient size. FINDINGS: The evaluation of mediastinum, gia and vessels is limited secondary to lack of IV contras t administration. Mild right lower lobe opacities. Minimal subsegmental atelectasis left lung No mediastinal or hilar lymphadenopathy is seen. A pleural effusion is not present. No pericardial effusion. Coronary arterial calcifications IMPRESSION: Mild right lower lobe opacities may represent atelectasis or aspiration pneumonia
[2020-07-07] MEDS: KCL 20 MEQ/100 mL IVPB 20 MEQ/100 ML BAG IV SCH ×2 (14:58→17:18)
--- NOTE | 2020-07-07 15:48 | RAD REPORT ---
EXAM DESCRIPTION: RAD - Chest Single View - 07/06/2020 3:24 am CLINICAL HISTORY: The patient is 75 years old and is Male; hypoxemia TECHNIQUE: Frontal view of the chest. COMPARISON: No relevant prior studies available. FINDINGS: Lungs: Linear opacity in the right lung base which may be due to atelectasis or airspace disease. Mild pulmonary vascular congestion with interstitial edema. Pleural space: Unremarkable. No pneumothorax. Heart: Unremarkable. Mediastinum: Unremarkable. Bones/joints: Unremarkable. IMPRESSION: 1. Linear opacity in the right lung base which may be due to atelectasis or airspace d isease. 2. Mild pulmonary vascular congestion with interstitial edema. Electronically signed by: Rodney Rossi MD 07/06/2020 3:36 AM CDT Due to temporary technical issues with the PACS/Fluency reporting system, reports are being signed by the in house radiologists without review as a courtesy to insure prompt reporting. The interpreting radiologist is fully responsible for the content of the report.
--- NOTE | 2020-07-07 15:49 | RAD REPORT ---
EXAM DESCRIPTION: CT - Head Brain Wo Cont - 07/06/2020 6:30 am CLINICAL HISTORY: The patient is 75 years old and is Male; ALTERED MENTAL STATUS TECHNIQUE: Axial computed tomography images of the head/brain without intravenous contrast. Sagitt al and coronal reformatted images were created and reviewed. This CT exam was performed using one o r more of the following dose reduction techniques: automated exposure control, adjustment of the mA and/or kV according to patient size, and/or use of iterative reconstruction technique. COMPARISON: CT head 06/11/2020. FINDINGS: Brain: Mild cerebral atrophy. No hemorrhage. No significant white matter disease. Ventricles: No ventriculomegaly. Bones/joints: Unremarkable. No acute fracture. Soft tissues: Unremarkable. Sinuses: Partial opacification of the left sphenoid sinus. Mastoid air cells: Unremarkable as visualized. No mastoid effusion. IMPRESSION: No acute intracranial abnormality. Mild cerebral atrophy. Electronically signed by: Rodney Rossi MD 07/06/2020 5:37 AM CDT Due to temporary technical issues with the PACS/Fluency reporting system, reports are being signed by the in house radiologists without review as a courtesy to insure prompt reporting. The interpreting radiologist is fully responsible for the content of the report.
[2020-07-07] MEDS ORDERED: ALBUTEROL 2.5 MG/3 ML NEB SOL NEB PRN (17:11)
--- NOTE | 2020-07-07 17:14 | P.CNS ---
Date of Consult: 07/07/20 Reason for Consult: Respiratory failure possible pneumonia Chief Complaint: pneumonia History of Present Illness: Patient is 75 years of age with end-stage dementia cannot recall the events that led into the hospital he is not even aware that he is in the hospital admitted with altered mental status low oxygen level use coal weighed negative admitted treated for possible aspiration Allergies No Known Allergies Allergy (Unverified 07/06/20 06:16) Home Medications: ARIPiprazole [Aripiprazole] 7.5 mg PO DAILY 07/06/20 Abiraterone Acetate 1,000 mg PO DAILY 07/06/20 Amlodipine [Norvasc*] 10 mg PO DAILY 07/06/20 Carbidopa/Levodopa [Carbidopa-Levo 25-100 mg Odt] 25 mg PO BID 07/06/20 Cholecalciferol (Vitamin D3) [Vitamin D3] 125 mcg PO DAILY 07/06/20 Losartan Potassium 50 mg PO DAILY 07/06/20 OXcarbazepine [Trileptal] 300 mg PO BID 07/06/20 Potassium Chloride 10 meq PO BID 07/06/20 Sulfamethoxazole/Trimethoprim [Sulfamethoxazole-Tmp Ds Tablet] 1 tab PO BID 07/06/20 Tamsulosin HCl 0.4 mg PO DAILY 07/06/20 Trazodone HCl 100 mg PO BEDTIME 07/06/20 carvediloL [Carvedilol] 6.25 mg PO DAILY 07/06/20 cloNIDine HCL [Clonidine HCl] 0.1 mg PO Q4HR PRN 07/06/20 hydroCHLOROthiazide [Hydrochlorothiazide] 25 mg PO DAILY 07/06/20 - Past Medical/Surgical History -: prostate cancer -: depression -: essential tremor -: Alzheimer's -: HTN -: psuedobulbar affect - Social History Smoking Status: Current every day smoker Place of Residence: [place] Review of Systems is unable to be obtained Physical Examination Temp Pulse Resp BP Pulse Ox 97.5 F 73 20 115/74 96 07/07/20 13:17 07/07/20 13:17 07/07/20 13:17 07/07/20 13:17 07/07/20 13:17 General: Alert, In no apparent distress Respiratory: Clear to auscultation bilaterally Cardiovascular: Regular rate/rhythm, Normal S1 S2, Edema Gastrointestinal: Normal bowel sounds, Soft and benign - Problems (1) Acute respiratory failure with hypoxia Current Visit: Yes Status: Acute Plan: Patient is 75 years of age admitted with hypoxemia he has no evidence of aspiration pneumonia he appears to be dehydrated with hypernatremia renal failure is improving with IV fluids white count mildly elevated blood gases show mild hypoxemia there is no evidence of aspiration on the CT scan shows mild basilar atelectasis is scheduled to have a swallow study done recent echocardiogram was normal is a possibility of thromboembolism empiric anticoagulation
[2020-07-07 18:11] LABS: Arterial Blood Carboxyhemoglob 1.1 % (0-1.5); Blood Gas Oxyhemoglobin 93.6 % (94-97); Blood O2 Saturation 95.9 % (92-98.5)
[2020-07-07] MEDS: ENOXAPARIN 80 MG/0.8 ML SQ SCH (21:25)
[2020-07-08] MEDS ORDERED: POTASSIUM 25 MEQ EFFERV TAB PO ONE ×2 (02:10→09:00)
[2020-07-08] MEDS: D5W 1,000 ML with POTASSIUM CL 20 MEQ IV SCH ×4 (05:35→19:12)
[2020-07-08 05:48] LABS: BUN Blood Urea Nitrogen 23 mg/dL (7-18); Bicarbonate 31 mmol/L (21-32); Glucose Level 95 mg/dL (74-106); Magnesium 2.2 mg/dL (1.8-2.4); Potassium 3.9 mmol/L (3.5-5.1); Sodium Level 145 mmol/L (136-145)
[2020-07-08 06:01] LABS: Absolute Lymphocytes (CBC) 0.8 K/uL (0.7-4.9); Basophils % 0.6 % (0-1.3); Hematocrit 34.5 % (39.6-49.0); Lymphocytes % 9.7 % (15.3-44.8); MPV 10.4 fL (7.6-11.3); RBC Red Blood Cell Count 3.67 M/uL (4.33-5.43)
--- NOTE | 2020-07-08 09:45 | P.PN ---
Subjective Date of Service: 07/08/20 Chief Complaint: pneumonia Subjective: Improving (poor historian due to dementia /confusion, denies any complaints this morning) Physical Examination - Vital Signs Temperature: 97.3 F Blood Pressure: 125/66 Pulse: 69 Respirations: 14 Pulse Ox (%): 98 Assessment & Plan Physician Review Additional Text: Physical Exam General: NAD, confused, AAOx1 HEENT: Mucous membr. moist/pink Neck: Supple, JVD not distended Pulm: Clear to auscultation bilaterally, Normal air movement, non-labored CV: No edema, Regular rate/rhythm, Normal S1 S2 Abd: Soft and benign, Non-distended, No tenderness Ext: no swelling, no tenderness Neurological: RUE: resting tremor, +dementia Problem List Acute metabolic encephalopathy Hypernatremia Acute respiratory failure with hypoxia Dementia -hypernatremia improving with IVF -hypoxia improving, bronchodilators, O2 as needed -pt with dementia / confusion, poor historian, without complaints this morning -d-dimer elevated this morning, will check CTA and b/l US to r/o VTE, already on empiric/therapeutic lovenox. pulm following -Speech therapy consulted for swallow evaluation - did well -seems to slowly be improving Dispo: anticipate dc back to [facility] in 24-48hrs Time Spent Managing Pts Care (In Minutes): 35
[2020-07-08] MEDS: ENOXAPARIN 80 MG/0.8 ML SQ SCH (09:46)
--- NOTE | 2020-07-08 11:35 | RAD REPORT ---
EXAM DESCRIPTION: CT - Chest For Pe Angio - 07/08/2020 10:45 am CLINICAL HISTORY: Chest pain COMPARISON: July 07 2020 cat TECHNIQUE: Dynamically enhanced axial 3 mm thick images of the chest were obtained during administra tion of <100> mL Isovue 370 IV contrast. Coronal and oblique reconstruction images were generated and reviewed. Exam utilizes a protocol for optimal evaluation of pulmonary arterial tree. Maximum intensity projections 3D imaging was utilized All CT scans are performed using dose optimization technique as appropriate and may include automated exposure control or mA/KV adjustment according to patient size. FINDINGS: A pulmonary embolus is not seen. A thoracic aortic aneurysm is not noted. A pleural effusion is not seen. A pericardial effusion is not seen. Minimal worsening in right lower lobe opacities IMPRESSION: Negative for a pulmonary embolism. Minimal worsening in right lower lobe opacities which may represent aspiration pneumonia
--- NOTE | 2020-07-08 12:47 | RAD REPORT ---
EXAM DESCRIPTION: USExtrem Venous W Compress Bil07/08/2020 11:51 am CLINICAL HISTORY: Elevated D-dimer COMPARISON: none FINDINGS: The common femoral, superficial femoral, popliteal veins bilaterally are compressible and demonstrate augmentation. Right posterior tibial vein is patent. Acute thrombus is present within the left posterior tibial vein. The vein is noncompressible Doppler demonstrates good flow. 3 x 1 centimeter left Ching's cyst IMPRESSION: Acute thrombus within the left posterior tibial vein. No additional deep veinous thrombu s seen 3 x 1 centimeter left Ching's cyst
[2020-07-08] MEDS: AMOX/K CLAV 875 MG TAB PO SCH ×2 (14:05→20:33)
--- NOTE | 2020-07-08 17:30 | P.DS ---
Admission Date: 07/06/20 Discharge Date: 07/08/20 Disposition: ROUTINE DISCHARGE Discharge Condition: FAIR Reason for Admission: pneumonia / lethargy Consultations: Pulm - Dr. Amado Procedures: CXR (07/06): Linear opacity in the right lung base which may be due to atelectasis or airspace disease. 2. Mild pulmonary vascular congestion with interstitial edema. CT Head (07/06): No acute intracranial abnormality. Mild cerebral atrophy. CT Chest (07/07): Mild right lower lobe opacities may represent atelectasis or aspiration pneumonia CXR (07/07): Limited shallow inspiration portable exam not substantially different from July 06 imaging. CTA Chest (07/08): Negative for a pulmonary embolism. Minimal worsening in right lower lobe opacities which may represent aspiration pneumonia Venous U/S (07/08): Acute thrombus within the left posterior tibial vein. No additional deep veinous thrombus seen. 3 x 1 centimeter left Ching's cyst Problem List Acute metabolic encephalopathy secondary to pneumonia and hypernatremia Hypernatremia Acute respiratory failure with hypoxia secondary to pneumonia Aspiration pneumonia Alzheimer's Dementia Pressure Ulcer: b/l buttocks - stage 2 Brief History of Present Illness: Mr. King is a 75 yo male with HTN, prostate cancer, Alzheimer's brought in by EMS from [facility]. Patient is AOx1 and unable to provide history so information obtained from EMS. Patient does awaken to voice and responds, but responses are incoherent. Brought in for low oxygen saturation to 88%. Patient with SOB, nonproductive cough, depressed LOC. Denies pain. COVID negative. WBC 11.8. CXR shows linear opacity in right lung base and mild pulmonary vascular congestion with interstitial edema. Na 150, K 3, Cl 111. BUN 29, GFR 55. Glu 1 84. BNP 619. Procal 0.13. Hospital Course: Patient was treated with IV antibiotics to cover possible aspiration pneumonia. Pulmonology was consulted and reviewed imaging. He felt the imaging was more consistent with atelectasis instead of pneumonia. He is discharged with 7 days of augmentin. Despite imaging, patient was hypoxic and so a D-dimer was obtained - and elevated >4k. CTA was negative for PE and venous U/S was positive for L posterior tibial DVT. He was empirically treated with lovenox, and will discharge with Eliquis. He was also noted to have mild hypernatremia, which may have attributed to his encephalopathy. This was due to some dehydration and improved with IVF hydration. Vital Signs/Physical Exam: Temp Pulse Resp BP Pulse Ox 96.7 F L 69 20 169/79 H 99 07/08/20 12:00 07/08/20 12:00 07/08/20 12:00 07/08/20 12:00 07/08/20 12:00 Laboratory Data at Discharge: WBC 7.90 K/uL (4.3-10.9) D 07/08/20 05:06 Hgb 11.2 g/dL (13.6-17.9) L 07/08/20 05:06 Hct 34.5 % (39.6-49.0) L 07/08/20 05:06 Plt Count 230 K/uL (152-406) D 07/08/20 05:06 PT 13.7 SECONDS (9.5-12.5) H 07/06/20 03:30 INR 1.19 07/06/20 03:30 APTT 30.2 SECONDS (24.3-36.9) 07/06/20 03:30 Sodium 145 mmol/L (136-145) 07/08/20 05:06 Potassium 3.9 mmol/L (3.5-5.1) 07/08/20 05:06 BUN 23 mg/dL (7-18) H 07/08/20 05:06 Creatinine 0.77 mg/dL (0.55-1.3) 07/08/20 05:06 Glucose 95 mg/dL (74-106) 07/08/20 05:06 Phosphorus 2.7 mg/dL (2.5-4.9) 07/07/20 05:24 Magnesium 2.2 mg/dL (1.8-2.4) 07/08/20 05:06 Total Bilirubin 0.3 mg/dL (0.2-1.0) 07/07/20 05:24 AST 29 U/L (15-37) 07/07/20 05:24 ALT 16 U/L (12-78) 07/07/20 05:24 Alkaline Phosphatase 53 U/L (45-117) 07/07/20 05:24 Lipase 129 U/L (73-393) 07/06/20 03:30 Home Medications: ARIPiprazole [Aripiprazole] 7.5 mg PO DAILY 07/06/20 Abiraterone Acetate 1,000 mg PO DAILY 07/06/20 Amlodipine [Norvasc*] 10 mg PO DAILY 07/06/20 Carbidopa/Levodopa [Carbidopa-Levo 25-100 mg Odt] 25 mg PO BID 07/06/20 Cholecalciferol (Vitamin D3) [Vitamin D3] 125 mcg PO DAILY 07/06/20 Losartan Potassium 50 mg PO DAILY 07/06/20 OXcarbazepine [Trileptal] 300 mg PO BID 07/06/20 Potassium Chloride 10 meq PO BID 07/06/20 Tamsulosin HCl 0.4 mg PO DAILY 07/06/20 Trazodone HCl 100 mg PO BEDTIME 07/06/20 carvediloL [Carvedilol] 6.25 mg PO DAILY 07/06/20 cloNIDine HCL [Clonidine HCl] 0.1 mg PO Q4HR PRN 07/06/20 hydroCHLOROthiazide [Hydrochlorothiazide] 25 mg PO DAILY 07/06/20 Amox/Clavulanate [Augmentin 875-125 Tab*] 875 mg PO BID 7 Days #14 tab 07/08/20 Apixaban [Eliquis] 1 pkg PO SEECOM 30 Days #1 tab.ds.pk 07/08/20 New Medications: Amox/Clavulanate [Augmentin 875-125 Tab*] 875 mg PO BID 7 Days #14 tab Apixaban [Eliquis] 1 pkg PO SEECOM 30 Days #1 tab.ds.pk Diet: Regular (Mechanical soft solids, chopped meats, thin liquids, whole medications, as tolerated) Activity: Fall precautions Followup: Unknown,U [Primary Care Provider] - Time spent managing pt's care (in minutes): 40
[2020-07-08] MEDS: APIXABAN 5 MG TABLET PO SCH (20:33)
[2020-07-09 06:35] LABS: BUN Blood Urea Nitrogen 13 mg/dL (7-18); Bicarbonate 31 mmol/L (21-32); Glucose Level 99 mg/dL (74-106); Potassium 3.1 mmol/L (3.5-5.1); Sodium Level 145 mmol/L (136-145)
[2020-07-09] MEDS ORDERED: NA CHLORIDE 0.9% 500 ML IV SCH (07:00)
[2020-07-09] MEDS: KCL 20 MEQ/100 mL IVPB 20 MEQ/100 ML BAG IV SCH ×2 (07:22→09:25)
[2020-07-09] MEDS ORDERED: CARBIDOPA/LEVODOPA 25/100 TAB PO SCH (09:00)
[2020-07-09] MEDS ORDERED: MUPIROCIN 2% OINT 22GM TUBE TOP SCH (09:00)
[2020-07-09] MEDS ORDERED: TAMSULOSIN 0.4 MG SR CAP PO SCH (09:00)
[2020-07-09] MEDS ORDERED: AMLODIPINE 10 MG TAB PO SCH (09:00)
[2020-07-09] MEDS ORDERED: carvediloL 6.25 MG TAB PO SCH (09:00)
[2020-07-09] MEDS ORDERED: VITAMIN D 5,000 UNIT CAP PO SCH (09:00)
[2020-07-09] MEDS: APIXABAN 5 MG TABLET PO SCH (09:23)
[2020-07-09] MEDS: AMOX/K CLAV 875 MG TAB PO SCH (09:24)
[2020-07-09] MEDS ORDERED: hydroCHLOROthiazide 25 MG TAB PO SCH (13:30)
[2020-07-09] MEDS ORDERED: LOSARTAN POTASSIUM 50 MG TABLET PO SCH (14:00)
[2020-07-09 16:12] VITALS: BP 126/75; TEMP 97
[2020-07-09 17:20] VITALS: O2SAT 98
[2020-07-09] MEDS ORDERED: ARIPiprazole 5 MG TAB PO SCH (21:00)
--- NOTE | 2020-07-09 21:25 | P.DS ---
Admission Date: 07/06/20 Discharge Date: 07/09/20 Disposition: HOSPICE-MEDICAL FACILITY Comment: Discharge to hospice at assisted living facility Discharge Condition: FAIR Reason for Admission: pneumonia / lethargy Consultations: Pulm - Dr. Amado Procedures: CXR (07/06): Linear opacity in the right lung base which may be due to atelectasis or airspace disease. 2. Mild pulmonary vascular congestion with interstitial edema. CT Head (07/06): No acute intracranial abnormality. Mild cerebral atrophy. CT Chest (07/07): Mild right lower lobe opacities may represent atelectasis or as piration pneumonia CXR (07/07): Limited shallow inspiration portable exam not substantially different from July 06 imaging. CTA Chest (07/08): Negative for a pulmonary embolism. Minimal worsening in right lower lobe opacities which may represent aspiration pneumonia Venous U/S (07/08): Acute thrombus within the left posterior tibial vein. No additional deep veinous thrombus seen. 3 x 1 centimeter left Ching's cyst Problem List Acute metabolic encephalopathy secondary to pneumonia and hypernatremia Hypernatremia Acute respiratory failure with hypoxia secondary to pneumonia Aspiration pneumonia Alzheimer's Dementia Pressure Ulcer: b/l buttocks - stage 2 Brief History of Present Illness: Mr. King is a 75 yo male with HTN, prostate cancer, Alzheimer's brought in by EMS from assisted. Patient is AOx1 and unable to provide history so information obtained from EMS. Patient does awaken to voice and responds, but responses are incoherent. Brought in for low oxygen saturation to 88%. Patient with SOB, nonproductive cough, depressed LOC. Denies pain. COVID negative. WBC 11.8. CXR shows linear opacity in right lung base and mild pulmonary vascular congestion with interstitial edema. Na 150, K 3, Cl 111. BUN 29, GFR 55. Glu 184. BNP 619. Procal 0.13. Hospital Course: Patient was treated with IV antibiotics to cover possible aspiration pneumonia. Pulmonology was consulted and reviewed imaging. He felt the imaging was more consistent with atelectasis instead of pneumonia. He is discharged with 7 days of augmentin. Despite imaging, patient was hypoxic and so a D-dimer was obtained - and elevated >4k. CTA was negative for PE and venous U/S was positive for L posterior tibial DVT. He was empirically treated with lovenox, and will discharge with Eliquis. He was also noted to have mild hypernatremia, which may have attributed to his encephalopathy. This was due to some dehydration and improved with IVF hydration. Patient's discharge was delayed due to facility patient was going back to needing time to set up for hospice. Patient was in process of transitioning to hospice prior to admission, per facility. Hospice equipment was set up on 07/09 and patient was subsequently discharged back to his assisted living facility with hospice. Vital Signs/Physical Exam: Physical Exam General: NAD, confused, AAOx1, pleasant HEENT: Mucous membr. moist/pink Neck: Supple, JVD not distended Pulm: Clear to auscultation bilaterally, Normal air movement, non-labored CV: No edema, Regular rate/rhythm, Normal S1 S2 Abd: Soft and benign, Non-distended, No tenderness Ext: no swelling, no tenderness Neurological: RUE: resting tremor, +dementia Temp Pulse Resp BP Pulse Ox 97 F 80 16 126/75 98 07/09/20 16:00 07/09/20 16:00 07/09/20 16:00 07/09/20 16:00 07/09/20 16:00 Laboratory Data at Discharge: WBC 7.90 K/uL (4.3-10.9) D 07/08/20 05:06 Hgb 11.2 g/dL (13.6-17.9) L 07/08/20 05:06 Hct 34.5 % (39.6-49.0) L 07/08/20 05:06 Plt Count 230 K/uL (152-406) D 07/08/20 05:06 PT 13.7 SECONDS (9.5-12.5) H 07/06/20 03:30 INR 1.19 07/06/20 03:30 APTT 30.2 SECONDS (24.3-36.9) 07/06/20 03:30 Sodium 145 mmol/L (136-145) 07/09/20 06:01 Potassium 3.1 mmol/L (3.5-5.1) L 07/09/20 06:01 BUN 13 mg/dL (7-18) 07/09/20 06:01 Creatinine 0.52 mg/dL (0.55-1.3) L 07/09/20 06:01 Glucose 99 mg/dL (74-106) 07/09/20 06:01 Phosphorus 2.7 mg/dL (2.5-4.9) 07/07/20 05:24 Magnesium 2.0 mg/dL (1.8-2.4) 07/09/20 06:01 Total Bilirubin 0.3 mg/dL (0.2-1.0) 07/07/20 05:24 AST 29 U/L (15-37) 07/07/20 05:24 ALT 16 U/L (12-78) 07/07/20 05:24 Alkaline Phosphatase 53 U/L (45-117) 07/07/20 05:24 Lipase 129 U/L (73-393) 07/06/20 03:30 Home Medications: ARIPiprazole [Aripiprazole] 7.5 mg PO DAILY 07/06/20 Abiraterone Acetate 1,000 mg PO DAILY 07/06/20 Amlodipine [Norvasc*] 10 mg PO DAILY 07/06/20 Carbidopa/Levodopa [Carbidopa-Levo 25-100 mg Odt] 25 mg PO BID 07/06/20 Cholecalciferol (Vitamin D3) [Vitamin D3] 125 mcg PO DAILY 07/06/20 Losartan Potassium 50 mg PO DAILY 07/06/20 OXcarbazepine [Trileptal] 300 mg PO BID 07/06/20 Potassium Chloride 10 meq PO BID 07/06/20 Tamsulosin HCl 0.4 mg PO DAILY 07/06/20 Trazodone HCl 100 mg PO BEDTIME 07/06/20 carvediloL [Carvedilol] 6.25 mg PO DAILY 07/06/20 cloNIDine HCL [Clonidine HCl] 0.1 mg PO Q4HR PRN 07/06/20 hydroCHLOROthiazide [Hydrochlorothiazide] 25 mg PO DAILY 07/06/20 Amox/Clavulanate [Augmentin 875-125 Tab*] 875 mg PO BID 7 Days #14 tab 07/08/20 Apixaban [Eliquis] 1 pkg PO SEECOM 30 Days #1 tab.ds.pk 07/08/20 New Medications: Amox/Clavulanate [Augmentin 875-125 Tab*] 875 mg PO BID 7 Days #14 tab Apixaban [Eliquis] 1 pkg PO SEECOM 30 Days #1 tab.ds.pk Diet: Regular (Mechanical soft solids, chopped meats, thin liquids, whole medications, as tolerated) Activity: Fall precautions Followup: Unknown,U [Primary Care Provider] - Time spent managing pt's care (in minutes): 35
== END 2020-07-09 16:40 | disposition hospice, inpatient (51) | DRG 177 ==
LOC: ERHOLD 06:53 → 2ND 17:51
PROVIDERS: ADMIT Internal Medicine; ATTEND Hospitalist
DX: J69.0 Pneumonitis due to inhalation of food and vomit (principal); J96.01 Acute respiratory failure with hypoxia; G93.41 Metabolic encephalopathy; E87.0 Hyperosmolality and hypernatremia; J98.11 Atelectasis; I10 Essential (primary) hypertension; G30.9 Alzheimer's disease, unspecified; F02.80 Dementia in other diseases classified elsewhere, unspecified severity, without behavioral disturbance, psychotic disturbance, mood disturbance, and anxiety; F32.9 Major depressive disorder, single episode, unspecified; F17.200 Nicotine dependence, unspecified, uncomplicated; G25.0 Essential tremor; L89.312 Pressure ulcer of right buttock, stage 2; L89.322 Pressure ulcer of left buttock, stage 2; F48.2 Pseudobulbar affect; E86.0 Dehydration; Z85.46 Personal history of malignant neoplasm of prostate; Z79.01 Long term (current) use of anticoagulants; Z79.899 Other long term (current) drug therapy; Z20.822 Contact with and (suspected) exposure to COVID-19
CPT/HCPCS: 0240U; 36415; 70450; 71045; 71250; 71275; 80048; 80053; 80076; 81003; 81015; 82805; 83605; 83690; 83735; 83880; 84100; 84132; 84145; 84484; 85025; 85379; 85610; 85730; 86140; 87040; 87086; 87088; 92610; 93005; 93970; 94760; 96361; 96374; 96375; 99251; 99285; J0456; J0696; J1650; J2543; J3480; J7030; J7040; J7050; Q9967